=== PATIENT | female | born 1990 | race Caucasian/White ===

== ENCOUNTER → 2016-08-16 | Outpatient (REF) | payer MEDICARE ==
[~2016-08-16] MED LIST: ENPRESSE; LAMI25TA; PROPRANOLOL LA; ZIPR80CAP
[2016-08-16 21:20] LABS: MEAN CORPUSCULAR HEMOGLOBIN 26.6 pg (27.0-33.0); MEAN CORPUSCULAR HGB CONC 32.5 g/dl (32.0-36.5); MEAN CORPUSCULAR VOLUME 81.7 fl (80.0-96.0); RED CELL DISTRIBUTION WIDTH 14.7 % (11.5-14.5); WHITE BLOOD COUNT 17.1 K/mm3 (4.0-10.0)
[2016-08-16 21:41] LABS: ALBUMIN 3.7 GM/DL (3.2-5.2); ALBUMIN/GLOBULIN RATIO 0.95 (1.00-1.93); ALKALINE PHOSPHATASE 107 U/L (45-117); ALT/SGPT 31 U/L (12-78); ANION GAP 7 MEQ/L (8-16); AST/SGOT 22 U/L (15-37); BILIRUBIN,TOTAL 0.1 MG/DL (0.2-1.0); BLOOD UREA NITROGEN 14 MG/DL (7-18); CARBON DIOXIDE LEVEL 28 MEQ/L (21-32); CHLORIDE LEVEL 108 MEQ/L (98-107); CREATININE FOR GFR 0.66 MG/DL (0.55-1.02); GLOMERULAR FILTRATION RATE > 60.0 (>60); GLUCOSE, FASTING 74 MG/DL (70-105); HCG, SERUM QUANTITATIVE < 1.0 MIU/ML; POTASSIUM SERUM 4.3 MEQ/L (3.5-5.1); SODIUM LEVEL 143 MEQ/L (136-145); TOTAL PROTEIN 7.6 GM/DL (6.4-8.2)
== END ==
LOC: M SFHCLERA 16:50
PROVIDERS: ATTEND Physician Assistant
DX: R42 Dizziness and giddiness (principal); D50.9 Iron deficiency anemia, unspecified; M25.572 Pain in left ankle and joints of left foot; Z79.899 Other long term (current) drug therapy
CPT/HCPCS: 80053; 83036; 83540; 84443; 84702; 85027; G0463

== ENCOUNTER → 2016-08-30 | Outpatient (REF) | payer MEDICARE ==
[2016-08-30 21:03] LABS: BASO # 0.1 K/mm3 (0.0-0.2); BASO % 0.4 % (0.0-1.0); EOS # 0.3 K/mm3 (0.0-0.50); EOS % 1.9 % (0.0-3.0); LARGE UNSTAINED CELL # 0.2 K/mm3 (0.0-0.4); LARGE UNSTAINED CELL % 0.9 % (0.0-4.0); LYMPH # 3.1 K/mm3 (1.5-6.5); LYMPH % 18.3 % (24.0-44.0); MEAN CORPUSCULAR HEMOGLOBIN 25.3 pg (27.0-33.0); MEAN CORPUSCULAR HGB CONC 30.3 g/dl (32.0-36.5); MEAN CORPUSCULAR VOLUME 83.6 fl (80.0-96.0); MONO # 0.6 K/mm3 (0.0-0.8); MONO % 3.5 % (0.0-5.0); NEUTROPHILS # 12.8 K/mm3 (1.8-7.7); PLATELET COUNT, AUTOMATED 407 k/mm3 (150-450); RED CELL DISTRIBUTION WIDTH 14.8 % (11.5-14.5)
== END ==
LOC: M SFHCLERA 16:55
PROVIDERS: ATTEND Physician Assistant
DX: D72.829 Elevated white blood cell count, unspecified (principal)
CPT/HCPCS: 85025; G0463

== ENCOUNTER → 2017-07-25 | Outpatient (CLI) | payer MEDICARE | LOC: M LRY 15:33 | DX: R05 Cough (principal) | CPT/HCPCS: G0463 ==

== ENCOUNTER → 2017-10-10 | Outpatient (REF) | payer MEDICARE ==
[2017-10-10 20:11] LABS: HEMATOCRIT 37.6 % (36.0-47.0); HEMOGLOBIN 11.8 g/dl (12.0-15.5); MEAN CORPUSCULAR HEMOGLOBIN 24.5 pg (27.0-33.0); MEAN CORPUSCULAR HGB CONC 31.4 g/dl (32.0-36.5); MEAN CORPUSCULAR VOLUME 78.2 fl (80.0-96.0); PLATELET COUNT, AUTOMATED 417 10^3/uL (150-450); RED BLOOD COUNT 4.81 10^6/uL (4.00-5.40); RED CELL DISTRIBUTION WIDTH 15.3 % (11.5-14.5); WHITE BLOOD COUNT 15.5 10^3/uL (4.0-10.0)
[2017-10-10 20:20] LABS: C REACTIVE PROTEIN QUANTITATIV 2.65 MG/DL (0.00-0.30)
[2017-10-10 20:20] LABS: RHEUMATOID FACTOR QUANT < 10.0 IU/ML (<15.0)
[2017-10-10 20:34] LABS: ERYTHROCYTE SEDIMENTATION RATE 41 mm/hr (0-20)
[2017-10-13 00:08] LABS: ANTINUCLEAR ANTIBODIES DIRECT Negative (Negative); Lyme Disease IgG/IgM Antibodie <0.91 ISR (0.00-0.90); Lyme Disease IgM Ab Quantitati <0.80 index (0.00-0.79)
== END ==
LOC: M SFHCLERA 16:26
DX: M25.541 Pain in joints of right hand (principal)
CPT/HCPCS: 86140

== ENCOUNTER 2018-01-08 11:04 | Emergency (ER) | payer MEDICARE ==
[2018-01-08 12:34] LABS: BASO # 0.1 10^3/uL (0.0-0.2); BASO % 0.3 % (0.0-1.0); EOS # 0.4 10^3/uL (0.0-0.50); HEMOGLOBIN 11.6 g/dl (12.0-15.5); IMMATURE GRANULOCYTE % 0.3 % (0-3.0); LYMPH # 3.2 10^3/uL (1.5-6.5); MEAN CORPUSCULAR HEMOGLOBIN 24.3 pg (27.0-33.0); MEAN CORPUSCULAR HGB CONC 30.5 g/dl (32.0-36.5); MEAN CORPUSCULAR VOLUME 79.5 fl (80.0-96.0); MONO # 0.7 10^3/uL (0.0-0.8); MONO % 4.9 % (0.0-5.0); NEUTROPHILS % 69.5 % (36.0-66.0); PLATELET COUNT, AUTOMATED 497 10^3/uL (150-450); RED BLOOD COUNT 4.78 10^6/uL (4.00-5.40); WHITE BLOOD COUNT 14.4 10^3/uL (4.0-10.0)
[2018-01-08] MEDS: ONDANSETRON 4MG/2ML VIAL (J2405) IV (12:40)
[2018-01-08] MEDS: NS 1,000 ML IV (12:40)
[2018-01-08] MEDS: KETOROLAC 30 MG/ML VIAL (J1885) IV (12:40)
[2018-01-08 13:03] LABS: ANION GAP 5 MEQ/L (8-16); BLOOD UREA NITROGEN 11 MG/DL (7-18); CALCIUM LEVEL 8.9 MG/DL (8.5-10.1); CARBON DIOXIDE LEVEL 29 MEQ/L (21-32); CHLORIDE LEVEL 105 MEQ/L (98-107); CREATININE FOR GFR 0.67 MG/DL (0.55-1.30); GLOMERULAR FILTRATION RATE > 60.0 (>60); GLUCOSE, FASTING 82 MG/DL (70-100); POTASSIUM SERUM 4.7 MEQ/L (3.5-5.1); SODIUM LEVEL 139 MEQ/L (136-145)
[2018-01-08 13:05] LABS: KETONE, URINE AUTO RFX NEGATIVE (NEGATIVE); LEUKOCYTE ESTERASE UR AUTO RFX NEGATIVE (NEGATIVE); MUCUS, URINE RFX SMALL (NEGATIVE); NITRITE, URINE AUTO RFX NEGATIVE (NEGATIVE); RBC, URINE AUTO RFX TNTC /HPF (0-3); SQUAM EPITHELIAL CELL UR AURFX 1 /HPF (0-6); WBC, URINE AUTO RFX 1 /HPF (0-3)
[2018-01-08] MEDS ORDERED: ISOVUE-370 76% 100ML VIAL (Q9967) As Ordered (14:10)
== END 2018-01-08 15:26 | disposition home or self-care (01) ==
LOC: M ED 11:04
DX: N92.0 Excessive and frequent menstruation with regular cycle (principal); G40.909 Epilepsy, unspecified, not intractable, without status epilepticus; F17.210 Nicotine dependence, cigarettes, uncomplicated; Z88.0 Allergy status to penicillin; Z79.3 Long term (current) use of hormonal contraceptives; Z79.899 Other long term (current) drug therapy
CPT/HCPCS: J2405

== ENCOUNTER 2018-02-25 11:01 | Emergency (ER) | payer MEDICARE ==
[2018-02-25 12:08] LABS: BASO # 0.1 10^3/uL (0.0-0.2); BASO % 0.5 % (0.0-1.0); EOS # 0.4 10^3/uL (0.0-0.50); EOS % 3.9 % (0.0-3.0); HEMATOCRIT 37.7 % (36.0-47.0); HEMOGLOBIN 11.5 g/dl (12.0-15.5); IMMATURE GRANULOCYTE % 0.4 % (0-3.0); LYMPH # 2.7 10^3/uL (1.5-6.5); LYMPH % 25.5 % (24.0-44.0); MEAN CORPUSCULAR HEMOGLOBIN 23.7 pg (27.0-33.0); MEAN CORPUSCULAR HGB CONC 30.5 g/dl (32.0-36.5); MEAN CORPUSCULAR VOLUME 77.7 fl (80.0-96.0); MONO # 0.7 10^3/uL (0.0-0.8); MONO % 6.3 % (0.0-5.0); NEUTROPHILS # 6.7 10^3/uL (1.8-7.7); NEUTROPHILS % 63.4 % (36.0-66.0); PLATELET COUNT, AUTOMATED 509 10^3/uL (150-450); RED BLOOD COUNT 4.85 10^6/uL (4.00-5.40); RED CELL DISTRIBUTION WIDTH 15.3 % (11.5-14.5); WHITE BLOOD COUNT 10.6 10^3/uL (4.0-10.0)
[2018-02-25 12:13] LABS: KETONE, URINE AUTO RFX NEGATIVE (NEGATIVE); LEUKOCYTE ESTERASE UR AUTO RFX NEGATIVE (NEGATIVE); MUCUS, URINE RFX SMALL (NEGATIVE); NITRITE, URINE AUTO RFX NEGATIVE (NEGATIVE); RBC, URINE AUTO RFX 1 /HPF (0-3); SPECIFIC GRAVITY UR AUTO RFX 1.024 (1.002-1.035); SQUAM EPITHELIAL CELL UR AURFX 0 /HPF (0-6); WBC, URINE AUTO RFX 2 /HPF (0-3)
[2018-02-25 12:48] LABS: ALBUMIN 3.3 GM/DL (3.2-5.2); ALBUMIN/GLOBULIN RATIO 0.75 (1.00-1.93); ALKALINE PHOSPHATASE 86 U/L (45-117); ALT/SGPT 31 U/L (12-78); ANION GAP 7 MEQ/L (8-16); AST/SGOT 25 U/L (7-37); BILIRUBIN,DIRECT < 0.1 MG/DL (0.0-0.2); BILIRUBIN,TOTAL 0.2 MG/DL (0.2-1.0); BLOOD UREA NITROGEN 11 MG/DL (7-18); CALCIUM LEVEL 9.2 MG/DL (8.5-10.1); CARBON DIOXIDE LEVEL 29 MEQ/L (21-32); CHLORIDE LEVEL 105 MEQ/L (98-107); CREATININE FOR GFR 0.65 MG/DL (0.55-1.30); GLOMERULAR FILTRATION RATE > 60.0 (>60); GLUCOSE, FASTING 102 MG/DL (70-100); LIPASE 69 U/L (73-393); POTASSIUM SERUM 4.9 MEQ/L (3.5-5.1); SODIUM LEVEL 141 MEQ/L (136-145); TOTAL PROTEIN 7.7 GM/DL (6.4-8.2)
[2018-02-25] MEDS: PANTOPRAZOLE 40MG INJ (PROTONIX) (C9113) IV (13:46)
[2018-02-25] MEDS: NS 1,000 ML IV (13:46)
== END 2018-02-25 14:23 | disposition home or self-care (01) ==
LOC: M ED 11:01
DX: K29.00 Acute gastritis without bleeding (principal); J40 Bronchitis, not specified as acute or chronic; G43.909 Migraine, unspecified, not intractable, without status migrainosus; Z88.0 Allergy status to penicillin
CPT/HCPCS: C9113

== ENCOUNTER → 2018-04-10 | Outpatient (CLI) | payer MEDICARE ==
[~2018-04-10] MED LIST changes: +AZIT-12 PO; +BENZ200C70 PO; +HYDR50TA70 PO; +KETO10TAB PO; +NAPR-885 PO; +PROT1TAB2 PO; +SPRI28TA PO; +VENTAER INH
--- NOTE | 2018-04-10 10:14 | REP ---
GALLBLADDER ULTRASOUND: HISTORY: Epigastric pain. Multiple stones are present in the gallbladder. The gallbladder wall measures 3.3 mm. The common bile duct measures 3.3 mm. There is fatty infiltration of the liver. The pancreas is not seen. The right kidney measures 6.6 cm in transverse by 4.8 cm in AP by 11 cm in cephalocaudal dimensions. There is no hydronephrosis or mass. IMPRESSION: Cholelithiasis. Electronically Signed by Manuel Qureshi MD 04/10/2018 10:18 A
== END ==
LOC: M LRY 07:48
PROVIDERS: ATTEND Nurse Practitioner Family
DX: K80.20 Calculus of gallbladder without cholecystitis without obstruction (principal); R10.10 Upper abdominal pain, unspecified

== ENCOUNTER 2018-04-12 10:34 | Observation (INO) | payer MEDICARE, SELFPAY ==
[~2018-04-12] VITALS: Ht 162.6 cm; Wt 114.5 kg
[2018-04-12] MEDS ORDERED: NAPR-885 PO (10:46)
[2018-04-12] MEDS ORDERED: NS 1,000 ML IV ONE ×3 (11:15→18:15)
[2018-04-12] MEDS ORDERED: ONDANSETRON 4MG/2ML VIAL (J2405) IV ONE (11:15)
[2018-04-12 11:20] LABS: BASO # 0.1 10^3/uL (0.0-0.2); BASO % 0.4 % (0.0-1.0); EOS # 0.2 10^3/uL (0.0-0.50); EOS % 1.6 % (0.0-3.0); HEMATOCRIT 36.2 % (36.0-47.0); HEMOGLOBIN 11.2 g/dl (12.0-15.5); LYMPH # 2.7 10^3/uL (1.5-6.5); LYMPH % 19.5 % (24.0-44.0); MEAN CORPUSCULAR HEMOGLOBIN 23.2 pg (27.0-33.0); MEAN CORPUSCULAR HGB CONC 30.9 g/dl (32.0-36.5); MEAN CORPUSCULAR VOLUME 74.9 fl (80.0-96.0); MONO # 0.6 10^3/uL (0.0-0.8); MONO % 4.1 % (0.0-5.0); NEUTROPHILS # 10.1 10^3/uL (1.8-7.7); NEUTROPHILS % 74.1 % (36.0-66.0); PLATELET COUNT, AUTOMATED 460 10^3/uL (150-450); RED BLOOD COUNT 4.83 10^6/uL (4.00-5.40); WHITE BLOOD COUNT 13.6 10^3/uL (4.0-10.0)
[2018-04-12] MEDS ORDERED: MORPHINE 4 MG/ML 1ML VIAL/SYRINGE (J2270) IV ONE ×2 (11:30→12:45)
[2018-04-12 11:47] LABS: ALBUMIN 3.5 GM/DL (3.2-5.2); ALT/SGPT 28 U/L (12-78); AMYLASE 28 U/L (25-115); BILIRUBIN,DIRECT 0.1 MG/DL (0.0-0.2); BILIRUBIN,TOTAL 0.3 MG/DL (0.2-1.0); BLOOD UREA NITROGEN 9 MG/DL (7-18); CALCIUM LEVEL 9.3 MG/DL (8.5-10.1); CARBON DIOXIDE LEVEL 27 MEQ/L (21-32); CHLORIDE LEVEL 105 MEQ/L (98-107); CREATININE FOR GFR 0.82 MG/DL (0.55-1.30); GLOMERULAR FILTRATION RATE > 60.0 (>60); GLUCOSE, FASTING 88 MG/DL (70-100); LIPASE 54 U/L (73-393); POTASSIUM SERUM 4.3 MEQ/L (3.5-5.1); SODIUM LEVEL 141 MEQ/L (136-145); TOTAL PROTEIN 7.8 GM/DL (6.4-8.2)
--- NOTE | 2018-04-12 12:18 | REP ---
Clinical: Right upper quadrant pain. Technique: Real time cuevas scale ultrasound examination using curved array transducer. Findings: Gallbladder demonstrates small amount of layering gravel without wall thickening or pericholecystic fluid. No biliary ductal dilatation is appreciated and the common bile duct measures 5.5 mm diameter. Liver and pancreas are normal in contour, size, echogenicity without focal hepatic or pancreatic lesions identified. The right kidney is normal in reniform shape without hydronephrosis and measures 11.1 x 5.9 x 4.7 cm. Impression: Cholelithiasis. Electronically Signed by Alejandro Gallardo MD 04/12/2018 12:10 P
[2018-04-12] MEDS ORDERED: KETOROLAC 30 MG/ML VIAL (J1885) IV ONE (16:45)
[2018-04-12] MEDS ORDERED: HYDROmorphone 2 MG TAB PO ONE (21:15)
[2018-04-12 21:28] LABS: URINE PREG TEST NEGATIVE (NEGATIVE)
[2018-04-12] MEDS ORDERED: ONDANSETRON 4MG/2ML VIAL (J2405) IV PRN ×2 (21:30→22:45)
[2018-04-12] MEDS ORDERED: MORPHINE 2 MG/ML 1ML SYRINGE (J2270) IV ONE (21:30)
[2018-04-12] MEDS ORDERED: NS 1,000 ML IV SCH (21:30)
[2018-04-12 22:24] LABS: HCG, SERUM QUANTITATIVE < 1.0 MIU/ML
[2018-04-12] MEDS ORDERED: ACETAMINOPHEN TAB 650MG DOSE (2X325MG) PO PRN (22:45)
[2018-04-12] MEDS ORDERED: NORCO, ANEXSIA 5/325MG TABLET (HYDROcodone/ACETAMINOPHEN) PO PRN (22:45)
[2018-04-12] MEDS ORDERED: KETOROLAC 30 MG/ML VIAL (J1885) IV PRN (22:45)
[2018-04-12] MEDS ORDERED: METOCLOPRAMIDE INJ 10MG/2ML VIAL (J2765) IV PRN (22:45)
[2018-04-12] MEDS ORDERED: MORPHINE 4 MG/ML 1ML VIAL/SYRINGE (J2270) IV PRN ×2 (22:45)
[2018-04-12] MEDS: LR 1,000 ML IV SCH (23:55)
[2018-04-13] VITALS (7 sets, daily range): BP systolic 110–138; BP diastolic 72–92
[2018-04-13] MEDS: LR 1,000 ML IV SCH ×2 (06:09→17:30)
[2018-04-13 07:24] LABS: ALBUMIN 2.9 GM/DL (3.2-5.2); ALT/SGPT 23 U/L (12-78); BILIRUBIN,TOTAL 0.3 MG/DL (0.2-1.0); BLOOD UREA NITROGEN 6 MG/DL (7-18); CALCIUM LEVEL 8.5 MG/DL (8.5-10.1); CARBON DIOXIDE LEVEL 28 MEQ/L (21-32); CHLORIDE LEVEL 110 MEQ/L (98-107); CREATININE FOR GFR 0.67 MG/DL (0.55-1.30); GLOMERULAR FILTRATION RATE > 60.0 (>60); GLUCOSE, FASTING 83 MG/DL (70-100); POTASSIUM SERUM 4.2 MEQ/L (3.5-5.1); SODIUM LEVEL 144 MEQ/L (136-145)
[2018-04-13 08:18] LABS: BASO # 0.1 10^3/uL (0.0-0.2); BASO % 0.5 % (0.0-1.0); EOS # 0.3 10^3/uL (0.0-0.50); EOS % 3.4 % (0.0-3.0); HEMATOCRIT 31.4 % (36.0-47.0); HEMOGLOBIN 9.7 g/dl (12.0-15.5); LYMPH # 2.3 10^3/uL (1.5-6.5); LYMPH % 23.2 % (24.0-44.0); MEAN CORPUSCULAR HEMOGLOBIN 23.2 pg (27.0-33.0); MEAN CORPUSCULAR HGB CONC 30.9 g/dl (32.0-36.5); MEAN CORPUSCULAR VOLUME 75.1 fl (80.0-96.0); MONO # 0.5 10^3/uL (0.0-0.8); MONO % 5.2 % (0.0-5.0); NEUTROPHILS # 6.8 10^3/uL (1.8-7.7); NEUTROPHILS % 67.5 % (36.0-66.0); RED BLOOD COUNT 4.18 10^6/uL (4.00-5.40)
[2018-04-13 08:34] LABS: PLATELET COUNT, AUTOMATED 355 10^3/uL (150-450)
[2018-04-13] MEDS ORDERED: PANTOPRAZOLE 40MG INJ (PROTONIX) (C9113) IV SCH (09:00)
--- NOTE | 2018-04-14 12:47 | HPE ---
DATE OF ADMISSION: 04/12/2018 ADMISSION DIAGNOSIS: Abdominal pain and cholelithiasis. HISTORY OF PRESENT ILLNESS: The patient is a 27-year-old woman who presented to the emergency department complaining of abdominal pain. She had presented at about 10:30 in the morning on April 12. She reported that she had been having some abdominal pain on and off for as long as several months for or more. She had recently seen her primary care provider who ordered a gallbladder ultrasound which apparently showed gallstones. The patient has an appointment to see one of my colleagues on April 28 but was having symptoms that she felt could not wait and she presented to the ER for evaluation. This was primarily pain in the right upper quadrant. She has noted some nausea and vomiting. She reports having pain occur and worsen after any oral intake now and this occurs very shortly after ingestion or even during a meal. Pain lasts for a short time and then may resolve. She has had pains that awakened her at night. She has nausea quite a bit. In the emergency department she had some laboratory studies done that were not particularly abnormal. A repeat ultrasound was done which confirmed cholelithiasis that showed no evidence of ductal dilatation or gallbladder wall thickening. I was consulted and the patient is now admitted for observation status for her abdominal pain. ALLERGIES: Allergies are reported to penicillin and penicillin cross reactors. MEDICATIONS PRIOR TO ADMISSION: Include hydroxyzine 50 mg by mouth three times a day as needed for anxiety and naproxen 500 mg by mouth twice daily as needed for pain. SURGICAL HISTORY: Significant only for some dental surgery. MEDICAL HISTORY: Significant for a history of seizures as a child but nothing since about age 9. She has been troubled by her abdominal pain for some time and initially it was briefer and more infrequent episodes. She does have a history of some anxiety. SOCIAL HISTORY: The patient is a former smoker who quit about 2 months ago. She is accompanied by a significant other apparently her . The patient denies any current tobacco use. She denies any significant alcohol intake. FAMILY HISTORY: Noncontributory. REVIEW OF SYSTEMS: Shows no history of cardiac problems, chest pain or palpitations. She has had no cough, wheezing or sputum production. She has had no hematemesis or hematochezia. She denies any history of jaundice, hepatitis or pancreatitis or peptic ulcer disease. She has had no history of DVT or pulmonary embolus. Remainder of the review of systems is unremarkable. PHYSICAL EXAMINATION: Physical exam reveals a quite obese young woman lying quietly on the hospital stretcher. She is alert and oriented. She is lying quietly but moves readily when necessary without obvious discomfort. Respiratory rate appears normal. Skin: Is warm and dry. Sclerae are anicteric. The neck is supple without mass or bruit. Heart: Exam shows a regular rate and rhythm. Lungs are clear. The abdomen is without any obvious hernia. She has some bowel sounds present. The abdomen is obese. The abdomen is soft and without palpable mass. In the right subcostal area laterally at about the AC joint. She has an area where when pressed she winces and freight engineer or teeth and appears quite uncomfortable. This is not entirely reproducible from one exam to another. Extremities: Show palpable radial and pedal pulses bilaterally. Her laboratory studies showed a white count of 14 with a hemoglobin of 11, hematocrit 36 and platelet count of 460,000. Differential count was 74% neutrophils and 20% lymphocytes. Chemistry profile showed a normal CPA with the exception of a slightly low lipase level. Ultrasound images, I reviewed and I would agree that this shows some layering small stones. IMPRESSION: 1. Abdominal pain. 2. Cholelithiasis. 3. Anxiety. PLAN: The patient will be placed on observation status. She certainly has a complaint of some upper abdominal pain with nausea. Her pain has been somewhat intermittent. Initially her symptoms sounded more typical of biliary colic and they do now in that she complains of onset of discomfort immediately with eating frequently now. She does have gallstones but there is no evidence of acute cholecystitis on the CT or on the ultrasound right now. We will keep the patient nothing by mouth. I will not start her on antibiotics at this point. She could have antinausea medicine or analgesics as necessary. We will see what happens to her symptoms while fasting here overnight and then decide what to do with her diet in the morning. I do not see an urgent need for cholecystectomy presently. I will see if we can get a nuclear biliary scan to confirm a patent cystic duct. The patient was counseled regarding the plan for care and desires to proceed as I have outlined it. [facility]OSPITALDim[facility]
== END 2018-04-14 02:20 | disposition home or self-care (01) ==
LOC: M ED 10:34 → M ED INP 22:38 → M PED 04-13 00:12
PROVIDERS: ADMIT Surgery; ATTEND Surgery
DX: K80.20 Calculus of gallbladder without cholecystitis without obstruction (principal); E66.9 Obesity, unspecified; Z87.891 Personal history of nicotine dependence; F41.9 Anxiety disorder, unspecified
CPT/HCPCS: 36415; 76705; 80048; 80053; 80076; 81001; 82150; 83690; 84702; 84703; 85025; 96361; 96374; 96375; 96376; 99284; C9113; J1885; J2270; J2405

== ENCOUNTER 2018-06-02 17:21 | Emergency (ER) | payer MEDICARE, SELFPAY ==
[~2018-06-02] VITALS: Ht 162.6 cm; Wt 113.6 kg
[2018-06-02] MEDS ORDERED: NAPR-50 PO (19:28)
[2018-06-02] MEDS ORDERED: SOMA350T PO (19:28)
[2018-06-02] MEDS ORDERED: diazePAM 10 MG TAB PO ONE (19:30)
[2018-06-02 19:34] VITALS: BP 109/65
== END 2018-06-02 19:48 | disposition home or self-care (01) ==
LOC: M ED 17:21
DX: M54.9 Dorsalgia, unspecified (principal); G89.29 Other chronic pain; F41.9 Anxiety disorder, unspecified; Z88.0 Allergy status to penicillin

== ENCOUNTER → 2018-06-06 | Outpatient (REF) | payer MEDICARE, SELFPAY ==
[~2018-06-06] MED LIST changes: +NAPR-837 PO; +SOMA350T PO
[2018-06-06 12:20] LABS: BASO # 0.1 10^3/uL (0.0-0.2); BASO % 0.5 % (0.0-1.0); EOS # 0.3 10^3/uL (0.0-0.50); EOS % 2.5 % (0.0-3.0); HEMATOCRIT 38.1 % (36.0-47.0); HEMOGLOBIN 11.6 g/dl (12.0-15.5); LYMPH # 2.9 10^3/uL (1.5-6.5); LYMPH % 22.5 % (24.0-44.0); MEAN CORPUSCULAR HEMOGLOBIN 23.3 pg (27.0-33.0); MEAN CORPUSCULAR HGB CONC 30.4 g/dl (32.0-36.5); MEAN CORPUSCULAR VOLUME 76.7 fl (80.0-96.0); MONO # 0.6 10^3/uL (0.0-0.8); NEUTROPHILS # 8.9 10^3/uL (1.8-7.7); PLATELET COUNT, AUTOMATED 491 10^3/uL (150-450); RED BLOOD COUNT 4.97 10^6/uL (4.00-5.40); WHITE BLOOD COUNT 12.8 10^3/uL (4.0-10.0)
[2018-06-06 12:45] LABS: ERYTHROCYTE SEDIMENTATION RATE 58 mm/hr (0-20)
[2018-06-06 13:21] LABS: ALBUMIN 3.8 GM/DL (3.2-5.2); ALT/SGPT 424 U/L (12-78); BILIRUBIN,TOTAL 0.5 MG/DL (0.2-1.0); BLOOD UREA NITROGEN 11 MG/DL (7-18); C REACTIVE PROTEIN QUANTITATIV 2.54 MG/DL (0.00-0.30); CARBON DIOXIDE LEVEL 26 MEQ/L (21-32); CHLORIDE LEVEL 105 MEQ/L (98-107); CHOLESTEROL LEVEL 207 MG/DL (<200); CHOLESTEROL RISK RATIO 4.704 (<5); CREATININE FOR GFR 0.62 MG/DL (0.55-1.30); FREE T4 1.02 NG/DL (0.76-1.46); GLOMERULAR FILTRATION RATE > 60.0 (>60); GLUCOSE, FASTING 79 MG/DL (70-100); HDL CHOLESTEROL 44 MG/DL (>40); LDL CHOLESTEROL 141 MG/DL (<100); NON-HDL-C 163 MG/DL; POTASSIUM SERUM 4.5 MEQ/L (3.5-5.1); SODIUM LEVEL 141 MEQ/L (136-145); TRIGLYCERIDES LEVEL 111 MG/DL (<150)
[2018-06-06 13:27] LABS: TOTAL 25(OH) VITAMIN D 17.5 NG/ML (30.0-100.0)
[2018-06-06 14:48] LABS: HCG, SERUM QUALITATIVE NEGATIVE (NEGATIVE)
== END ==
LOC: M SFHCPLAZ 10:33
PROVIDERS: ATTEND Nurse Practitioner Family
DX: F41.1 Generalized anxiety disorder (principal); F32.9 Major depressive disorder, single episode, unspecified; M54.9 Dorsalgia, unspecified; R73.01 Impaired fasting glucose; Z13.228 Encounter for screening for other metabolic disorders; E55.9 Vitamin D deficiency, unspecified

== ENCOUNTER → 2018-06-11 | Outpatient (REF) ==
[~2018-06-11] MED LIST changes: +NAPR-50 PO; -NAPR-837 PO
--- NOTE | 2018-06-11 12:17 | REP ---
RIGHT ANKLE, FOUR VIEWS: HISTORY: Degenerative joint disease. There is no acute fracture or dislocation. The joint space is normal in appearance. IMPRESSION: There is no acute fracture or dislocation. Electronically Signed by Manuel Qureshi MD 06/11/2018 12:17 P
--- NOTE | 2018-06-11 12:17 | REP ---
PARTIAL LUMBAR SPINE, THREE VIEWS: HISTORY: Degenerative disc disease. COMPARISON: 06/22/2011. There is no acute fracture or subluxation. The L4-5 intervertebral disc is decreased in height consistent with disc degeneration. IMPRESSION: Degenerative change as described above. Electronically Signed by Manuel Qureshi MD 06/11/2018 12:18 P
== END ==
LOC: M SMT 08:57
PROVIDERS: ATTEND Internal Medicine
DX: Z02.89 Encounter for other administrative examinations (principal)

== ENCOUNTER → 2018-06-17 | Outpatient (REF) | payer MEDICARE | LOC: M SFHCPLAZ 08:32 | PROVIDERS: ATTEND Nurse Practitioner Family | DX: R74.8 Abnormal levels of other serum enzymes (principal); R73.01 Impaired fasting glucose; Z53.8 Procedure and treatment not carried out for other reasons ==

== ENCOUNTER → 2018-08-15 | Outpatient (REF) | payer MEDICARE ==
[~2018-08-15] MED LIST changes: -NAPR-50 PO; +NAPR-837 PO
[2018-08-15 14:27] LABS: ALBUMIN 3.7 GM/DL (3.2-5.2); ALT/SGPT 152 U/L (12-78); BILIRUBIN,DIRECT < 0.1 MG/DL (0.0-0.2); BILIRUBIN,TOTAL 0.3 MG/DL (0.2-1.0); TOTAL PROTEIN 7.9 GM/DL (6.4-8.2)
[2018-08-15 14:45] LABS: HEPATITIS B SURFACE ANTIGEN NEGATIVE (NEGATIVE)
[2018-08-15 15:13] LABS: HEPATITIS B CORE ANTIBODY IGM NEGATIVE (NEGATIVE); HEPATITIS C VIRUS ABY INDEX 0.1 INDEX (<0.8)
[2018-08-18 11:08] LABS: HEPATITIS A ANTIBODY IGM NEGATIVE (NEGATIVE)
== END ==
LOC: M SFHCPLAZ 10:57
PROVIDERS: ATTEND Nurse Practitioner Family
DX: R74.8 Abnormal levels of other serum enzymes (principal); R73.01 Impaired fasting glucose

== ENCOUNTER → 2018-10-30 | Outpatient (REF) | payer MEDICARE | LOC: M LAB REF 11:18 | PROVIDERS: ATTEND Physician Assistant | DX: J02.9 Acute pharyngitis, unspecified (principal) ==

== ENCOUNTER 2018-11-11 01:15 | Emergency (ER) | payer MEDICAID, MEDICARE, SELFPAY ==
[~2018-11-11] VITALS: Ht 162.6 cm; Wt 104.6 kg
[2018-11-11 01:54] LABS: BASO # 0.1 10^3/uL (0.0-0.2); BASO % 0.3 % (0.0-1.0); EOS # 0.4 10^3/uL (0.0-0.50); EOS % 2.1 % (0.0-3.0); HEMATOCRIT 37.4 % (36.0-47.0); HEMOGLOBIN 11.5 g/dl (12.0-15.5); LYMPH # 3.1 10^3/uL (1.5-6.5); LYMPH % 17.3 % (24.0-44.0); MEAN CORPUSCULAR HEMOGLOBIN 25.1 pg (27.0-33.0); MEAN CORPUSCULAR HGB CONC 30.7 g/dl (32.0-36.5); MEAN CORPUSCULAR VOLUME 81.7 fl (80.0-96.0); MONO % 5.7 % (0.0-5.0); NEUTROPHILS # 13.3 10^3/uL (1.8-7.7); NEUTROPHILS % 74.3 % (36.0-66.0); PLATELET COUNT, AUTOMATED 384 10^3/uL (150-450); RED BLOOD COUNT 4.58 10^6/uL (4.00-5.40); WHITE BLOOD COUNT 17.9 10^3/uL (4.0-10.0)
[2018-11-11 02:22] LABS: BLOOD UREA NITROGEN 15 MG/DL (7-18); CALCIUM LEVEL 9.3 MG/DL (8.5-10.1); CARBON DIOXIDE LEVEL 32 MEQ/L (21-32); CHLORIDE LEVEL 105 MEQ/L (98-107); CK-MB VALUE MASS 1.3 NG/ML (<3.6); CPK CREATINE PHOSPHOKINASE 88 U/L (26-192); CREATININE FOR GFR 0.62 MG/DL (0.55-1.30); GLOMERULAR FILTRATION RATE > 60.0 (>60); GLUCOSE, FASTING 112 MG/DL (70-100); MB/CK RELATIVE INDEX 1.48 (< OR =4); POTASSIUM SERUM 4.4 MEQ/L (3.5-5.1); SODIUM LEVEL 140 MEQ/L (136-145); TROPONIN I < 0.02 NG/ML (< 0.10)
--- NOTE | 2018-11-11 02:38 | REP ---
Clinical: Acute chest pain . Comparison: 07/25/2017 . Findings: The mediastinum and cardiac silhouette are stable and within normal limits for portable technique. The lung knott are clear without acute consolidation, effusion, or pneumothorax. Skeletal structures are intact. Impression: No acute cardiopulmonary process appreciated. Electronically Signed by Alejandro Gallardo MD 11/11/2018 02:29 A
[2018-11-11 02:45] LABS: HCG, SERUM QUALITATIVE NEGATIVE (NEGATIVE)
[2018-11-11 02:46] LABS: ALBUMIN 3.4 GM/DL (3.2-5.2); ALT/SGPT 23 U/L (12-78); BILIRUBIN,DIRECT < 0.1 MG/DL (0.0-0.2); BILIRUBIN,TOTAL 0.2 MG/DL (0.2-1.0); LIPASE 71 U/L (73-393); TOTAL PROTEIN 7.3 GM/DL (6.4-8.2)
[2018-11-11] MEDS ORDERED: PANTOPRAZOLE 40MG INJ (PROTONIX) (C9113) IV ONE (05:00)
[2018-11-11] MEDS ORDERED: GI COCKTAIL 50ML BTL(HYOSCYAMINE/MAALOX/LIDOCAINE VISCOUS)(1:3:1) PO ONE (05:00)
[2018-11-11] MEDS ORDERED: ISOVUE-370 76% 100ML VIAL (Q9967) As Ordered ONE (05:13)
[2018-11-11] MEDS ORDERED: NS 1,000 ML IV ONE (05:15)
--- NOTE | 2018-11-11 05:45 | ECGEPIP ---
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
--- NOTE | 2018-11-11 07:41 | REPVR ---
EXAM: CT Angiography Chest With Contrast EXAM DATE/TIME: 11/11/2018 4:58 AM CLINICAL HISTORY: 28 years old, female; Chest pain; Type not specified; Additional info: Pleuritic chest pain, SOB TECHNIQUE: Imaging protocol: Axial computed tomographic angiography images of the chest with intravenous contrast using CT angiography protocol. Coronal and sagittal reformatted images were created and reviewed. 3D rendering: MIP reconstructed images were created and reviewed. Radiation optimization: All CT scans at this facility use at least one of these dose optimization techniques: automated exposure control; mA and/or kV adjustment per patient size (includes targeted exams where dose is matched to clinical indication); or iterative reconstruction. Contrast material: ISO; Contrast volume: 100 ml; Contrast route: AC; COMPARISON: CR PORTABLE CHEST X-RAY 11/11/2018 1:30 AM FINDINGS: Pulmonary arteries: No pulmonary embolus is identified. Aorta: The thoracic aorta is nonaneurysmal. Lungs: Mild dependent atelectasis is present bilaterally. The lungs are otherwise clear. The central airways appear patent. Pleural space: Unremarkable. No pneumothorax. No pleural effusion. Heart: Unremarkable. No cardiomegaly. No pericardial effusion. Lymph nodes: Unremarkable. No enlarged lymph nodes. Bones/joints: Mild degenerative changes involve the spine. Soft tissues: Unremarkable. Other findings: Dedicated abdominal CT has been performed, and findings below the diaphragm will be reported separately. IMPRESSION: No pulmonary embolus or other acute thoracic disease identified. Electronically signed by: Lawrence Roberts On 11/11/2018 07:41:17 AM
[2018-11-11] MEDS ORDERED: VENTAER INH (07:46)
--- NOTE | 2018-11-11 07:48 | REPVR ---
EXAM: CT Abdomen and Pelvis With Contrast EXAM DATE/TIME: 11/11/2018 4:58 AM CLINICAL HISTORY: 28 years old, female; Abdominal pain; Generalized; Additional info: Upper abd pain TECHNIQUE: Imaging protocol: Axial computed tomography images of the abdomen and pelvis with intravenous contrast. Coronal and sagittal reformatted images were created and reviewed. Radiation optimization: All CT scans at this facility use at least one of these dose optimization techniques: automated exposure control; mA and/or kV adjustment per patient size (includes targeted exams where dose is matched to clinical indication); or iterative reconstruction. Contrast material: ISO; Contrast volume: 100 ml; Contrast route: AC; COMPARISON: CT ABD/PEL W/IV CONTRAST ONLY 01/08/2018 2:10 PM FINDINGS: Lungs: The visualized lung bases demonstrate mild dependent atelectasis. Liver: Normal. No mass. Gallbladder and bile ducts: A stone is newly evident in the gallbladder. Pancreas: Normal. No ductal dilation. Spleen: Normal. No splenomegaly. Adrenals: Normal. No mass. Kidneys and ureters: Normal. No hydronephrosis. Stomach and bowel: The unopacified small bowel is not significantly distended to suggest obstruction. There is again minor descending and sigmoid colonic diverticulosis without evidence for diverticulitis. The large bowel is otherwise grossly unremarkable in appearance. Appendix: The appendix appears normal. Intraperitoneal space: Normal. No free air. No significant fluid collection. Vasculature: Normal. No abdominal aortic aneurysm. Lymph nodes: Normal. No enlarged lymph nodes. Bladder: Unremarkable as visualized. Reproductive: No gross adnexal abnormality is apparent, but ultrasound would be more appropriate in this regard. Bones/joints: Degenerative changes again involve the spine. Soft tissues: A small fat-containing umbilical hernia is again present. IMPRESSION: 1. Cholelithiasis, newly evident as compared with 01/08/18. 2. Persistent minor left-sided colonic diverticulosis without evidence for diverticulitis. 3. Persistent small fat-containing umbilical hernia. Electronically signed by: Lawrence Roberts On 11/11/2018 07:48:11 AM
[2018-11-11 08:54] LABS: BASO # 0.1 10^3/uL (0.0-0.2); BASO % 0.3 % (0.0-1.0); EOS # 0.1 10^3/uL (0.0-0.50); EOS % 0.6 % (0.0-3.0); HEMATOCRIT 34.3 % (36.0-47.0); HEMOGLOBIN 10.5 g/dl (12.0-15.5); LYMPH # 2.6 10^3/uL (1.5-6.5); LYMPH % 15.7 % (24.0-44.0); MEAN CORPUSCULAR HEMOGLOBIN 24.9 pg (27.0-33.0); MEAN CORPUSCULAR HGB CONC 30.6 g/dl (32.0-36.5); MEAN CORPUSCULAR VOLUME 81.3 fl (80.0-96.0); MONO # 0.9 10^3/uL (0.0-0.8); MONO % 5.7 % (0.0-5.0); NEUTROPHILS # 12.7 10^3/uL (1.8-7.7); NEUTROPHILS % 77.3 % (36.0-66.0); PLATELET COUNT, AUTOMATED 337 10^3/uL (150-450); RED BLOOD COUNT 4.22 10^6/uL (4.00-5.40); WHITE BLOOD COUNT 16.5 10^3/uL (4.0-10.0)
[2018-11-11 09:16] LABS: ALBUMIN 3.1 GM/DL (3.2-5.2); BILIRUBIN,DIRECT 0.1 MG/DL (0.0-0.2); BILIRUBIN,TOTAL 0.2 MG/DL (0.2-1.0); TOTAL PROTEIN 6.2 GM/DL (6.4-8.2)
--- NOTE | 2018-11-11 11:08 | REP ---
RIGHT UPPER QUADRANT ULTRASOUND: Real-time sonographic evaluation of the right upper quadrant performed. The gallbladder demonstrates multiple subcentimeter stones and possibly a few tiny subcentimeter polyps in the range of 5 mm. There is gallbladder wall thickening up to 8 mm. There is no pericholecystic fluid. There is no intrahepatic or extrahepatic biliary dilatation, common bile duct measuring 5 mm. Liver and pancreas demonstrate no gross mass, pancreas not optimally seen due to overlying bowel gas. Right kidney demonstrates no hydronephrosis with normal size 12.2 cm in length. IMPRESSION: Multiple subcentimeter gallstones in the gallbladder with possibly a few subcentimeter polyps as well. Diffuse gallbladder wall thickening up to 8 mm. No free fluid or biliary dilatation. Electronically Signed by Axel Phillips MD 11/11/2018 05:07 P
[2018-11-11] MEDS ORDERED: metroNIDAZOLE 500 MG in APPROPRIATE DILUENT 1 EA IV ONE (11:45)
[2018-11-11] MEDS ORDERED: FLAG500T PO (12:32)
[2018-11-11] MEDS ORDERED: CIPR-249 PO (12:32)
[2018-11-11] MEDS ORDERED: NAPR-837 PO (12:32)
[2018-11-11] MEDS ORDERED: CIPROFLOXACIN 400 MG in APPROPRIATE DILUENT 1 EA IV ONE (12:45)
[2018-11-11 14:37] VITALS: BP 128/83
--- NOTE | 2018-11-12 17:52 | CR ---
DATE OF CONSULTATION: 11/11/2018 REASON FOR CONSULTATION: Abdominal pain. HISTORY OF PRESENT ILLNESS: The patient is a 28-year-old female who presents to the emergency room (ER) with a few month history of right upper quadrant pain that has been getting gradually worse. She was evaluated back in March 2018 in the hospital with Dr. Felton for cholelithiasis and acute cholecystitis. She was discharged home. Recommended to followup with him in the office to have elective surgery completed and she apparently was never able to get an appointment scheduled. She now presents with increasing pain. Denies any fevers. Mild nausea and vomiting that has resolved now. She has had the symptoms on-and-off, just been getting slightly worse lately, so she came in for evaluation. In the ER, she did have a white count of 17.9 which improved to 16.5 in the last few hours. Ultrasound of the gallbladder did show multiple gallstones with wall thickening up to 8 mm and no free fluid or biliary dilatation. Therefore, I was called to evaluate. Currently her pain is controlled. She has no heartburn or acid reflux. She does have some pain radiating around the right side but no pain to the shoulder. No changes in bowel movements. No recent trauma to the abdomen or travel. No recent illnesses. She is complaining of pain along her bilateral ribcage. With further questioning, she also has pain pretty much over all of her joints, all of the ribs, the clavicle, even her elbow and wrist and pelvic bone are tender to palpation, and that was her main complaint was the rib pain rather than the abdominal pain. She is not sure if she has a primary. She has not seen one in a long time and has not had any workup or treatment for that. PAST MEDICAL HISTORY: Apparently, she has some new onset diabetes that she is aware about but has not had any treatment for yet, a history of seizures, anxiety. PAST SURGICAL HISTORY: Dental surgery. ALLERGIES: PENICILLIN: MEDICATIONS: Please see medical record. REVIEW OF SYSTEMS: Pertinent positives and negatives as stated in the history of present illness (HPI). SOCIAL HISTORY: Denies current drug, alcohol, or tobacco abuse. FAMILY HISTORY: Noncontributory. PHYSICAL EXAMINATION: GENERAL: Alert and oriented times three, in no acute distress. VITAL SIGNS: Temperature 98.4, pulse 82, respirations 17, blood pressure 128/83, pulse oximetry 98% room air. HEENT: Pupils equally round and react to light and accommodation. HEART: S1, S2, regular rate and rhythm. LUNGS: Clear to auscultation bilaterally. ABDOMEN: Soft, slight tenderness to palpation over the bilateral lower rib cages. No pain in the abdomen. No rebounding or guarding. EXTREMITIES: She has got pain on the wrists, elbows, clavicle and even over the pubic bone. LABORATORY DATA: White count 16.5, hemoglobin 10.5, platelets 337. LFTs are all within normal range. Lipase is 71. IMAGING STUDIES: Gallbladder ultrasound shows multiple gallstones with the gallbladder wall thickening up to 8 mm. No free fluid. ASSESSMENT AND PLAN: The patient is a 28-year-old female with what appears to be chronic calculus cholecystitis, possibly acute on chronic calculus cholecystitis. She also has some unexplainable bone pain diffusely throughout her body. At this time, there is no indication for an emergent procedure. The patient is anxious to get back to work. Therefore, I recommend she be discharged from the emergency room (ER). She can be given oral antibiotics to take for a week due to the elevated white count. She should followup with Dr. Felton in the office to have an elective outpatient procedure scheduled. She also should followup with her primary and if she does not have one then she should get one and have this bone pain evaluated further. All of her questions are answered and she will be discharged from the ER and return if her symptoms happen to get worse.
== END 2018-11-11 14:44 | disposition home or self-care (01) ==
LOC: M ED 01:15 → CANBEDREQ 12:30 → M ED 14:44
DX: K80.10 Calculus of gallbladder with chronic cholecystitis without obstruction (principal); D72.829 Elevated white blood cell count, unspecified; R11.2 Nausea with vomiting, unspecified; I10 Essential (primary) hypertension; J45.991 Cough variant asthma; G43.909 Migraine, unspecified, not intractable, without status migrainosus; F41.1 Generalized anxiety disorder; M19.90 Unspecified osteoarthritis, unspecified site; F17.200 Nicotine dependence, unspecified, uncomplicated; Z79.899 Other long term (current) drug therapy
CPT/HCPCS: 71045; 71275; 74177; 76705; 80048; 80076; 81001; 82550; 82553; 83690; 84703; 85025; 93005; 93041; 94760; 96361; 96365; 96366; 96368; 96375; 99285; C9113; J0744; Q9967

== ENCOUNTER 2018-12-09 09:54 | Day surgery (SDC) | payer MEDICAID ==
[~2018-12-09] VITALS: Ht 162.6 cm; Wt 103.6 kg
[~2018-12-09 09:54] MED LIST changes: +CIPR-249 PO; +FLAG500T PO; +LR 1,000 ML IV ONE
[2018-12-09] MEDS ORDERED: BUPIVACAINE HCL 0.25% 30 ML VIAL As Ordered ONE (11:40)
[2018-12-09 11:49] LABS: HCG, SERUM QUALITATIVE NEGATIVE (NEGATIVE)
[2018-12-09] MEDS ORDERED: PROPOFOL 200 MG/20 ML VIAL As Ordered ONE (12:11)
[2018-12-09] MEDS ORDERED: ONDANSETRON 4MG/2ML VIAL (J2405) As Ordered ONE (12:11)
[2018-12-09] MEDS ORDERED: ROCURONIUM BROMIDE 50 MG/5 ML VIAL As Ordered ONE (12:11)
[2018-12-09] MEDS ORDERED: MIDAZOLAM INJ 2 MG/2 ML VIAL (J2250) As Ordered ONE (12:11)
[2018-12-09] MEDS ORDERED: LIDOCAINE 2% INJ 100 MG/5 ML SDV (FOR ANES.) As Ordered ONE (12:11)
[2018-12-09] MEDS ORDERED: fentaNYL 250 MCG/5 ML INJECTION (J3010) As Ordered ONE (12:11)
[2018-12-09] MEDS ORDERED: dexameTHASONE 4 MG/ML 1ML VIAL (J1100) As Ordered ONE (12:11)
[2018-12-09] MEDS ORDERED: ESMOLOL INJ 100MG/10ML VIAL As Ordered ONE (12:43)
[2018-12-09] MEDS ORDERED: SUGAMMADEX SODIUM 500 MG/5 ML VIAL (BRIDION) As Ordered ONE (12:53)
[2018-12-09] MEDS ORDERED: KETOROLAC 60 MG/2 ML VIAL (J1885) As Ordered ONE (12:53)
[2018-12-09] MEDS ORDERED: HYDROMORPHONE HCL 0.5 MG/ 0.5 ML SYRINGE (J1170 PER 1) As Ordered ONE ×2 (13:39→13:52)
[2018-12-09] MEDS ORDERED: PERCOCET 5MG/325MG TAB As Ordered ONE (13:39)
[2018-12-09] MEDS: HYDROMORPHONE HCL 0.5 MG/ 0.5 ML SYRINGE (J1170 PER 1) IV PRN ×5 (13:40→14:00)
[2018-12-09] MEDS ORDERED: fentaNYL 100 MCG/2 ML INJECTION (J3010) IV PRN (13:45)
[2018-12-09] MEDS ORDERED: ONDANSETRON 4MG/2ML VIAL (J2405) IV PRN (13:45)
[2018-12-09] MEDS ORDERED: LR 1,000 ML IV SCH (13:45)
[2018-12-09] MEDS ORDERED: PERCOCET 5MG/325MG TAB PO PRN (13:45)
[2018-12-09] MEDS ORDERED: ACETAMINOPHEN TAB 650MG DOSE (2X325MG) PO PRN (14:30)
[2018-12-09] MEDS ORDERED: NORCO, ANEXSIA 5/325MG TABLET (HYDROcodone/ACETAMINOPHEN) PO PRN (14:30)
[2018-12-09] MEDS ORDERED: IBUPROFEN 600 MG TAB PO PRN (14:30)
[2018-12-09 15:45] VITALS: BP 132/82
--- NOTE | 2018-12-11 16:12 | RO ---
DATE OF PROCEDURE: 12/09/2018 PREOPERATIVE DIAGNOSIS: Symptomatic gallstones. POSTOPERATIVE DIAGNOSIS: Symptomatic gallstones. PROCEDURE PERFORMED: Laparoscopic cholecystectomy. SURGEON: Dr. Elvis Felton CHIEF TECHNICAL OFFICER: ANESTHESIA: General. INDICATIONS FOR THE PROCEDURE: The patient is a 28-year-old woman who had experienced some upper abdominal discomfort. Evaluation revealed cholelithiasis with a thickened gallbladder wall. She was treated with antibiotics with resolution of her discomfort and is now for a laparoscopic cholecystectomy. DESCRIPTION OF PROCEDURE: The patient was brought to the operating room and placed on the table in a supine position. She was placed under general endotracheal anesthesia. The patient's abdomen was prepped and draped in a sterile fashion. 0.25% Marcaine was infiltrated at the trocars sites as needed. Initial entry was in the left upper quadrant where local anesthesia was achieved, and a small incision was made. A Veress needle was inserted and after a positive hanging drop test, the abdomen was insufflated with carbon dioxide gas. A 5 mm port was placed over the 5 mm scope and advanced through the abdominal wall without difficulty. Initial examination showed abundant omental fat covering the abdominal contents. The liver was visible and appeared normal. The patient was tilted to a slight reverse Trendelenburg position and rolled slightly to the left. 11 mm trocar slightly above and to the right of the umbilicus. Two 5 mm trocars were placed in the right upper quadrant. Graspers were inserted. The edge of the liver was elevated and the gallbladder was found to be quite thickened but contracted. This was grasped and elevated. There was one band of adhesions extending down the lateral aspect of the gallbladder, which was divided with the cautery. Dissection proceeded down to the area of the gallbladder neck. The pericholecystic fibrofatty tissues were opened with the hook cautery. The cystic duct was clearly identified, and this was doubly clipped with hemoclips and divided. The cholecystic artery was also identified, and this was doubly clipped with hemoclips and divided. The gallbladder was then dissected free from the gallbladder bed using cautery dissection. The gallbladder was placed in an Endopouch. The right upper quadrant was irrigated and inspected, and there was no evidence of any bleeding or bile leak. The patient was returned to a flat position. The abdomen was deflated and the trocars were all removed. The gallbladder was recovered through the 11 mm port site, which required extending the skin incision slightly and opening the fascia slightly. The gallbladder was sent for permanent pathology. The rectus muscle fibers remained intact. I was unable to identify the inner layer of the rectus sheath so the outer layer was closed with interrupted simple sutures of #2-0 Vicryl. The skin incisions were all closed with buried #5-0 Vicryl and Steri-Strips. Light dressings were applied. The patient tolerated the procedure well without apparent complication. She was awakened in the operating room, extubated and moved to the recovery room in stable condition.
== END 2018-12-09 15:56 | disposition home or self-care (01) ==
LOC: M SDC 09:54
PROVIDERS: ATTEND Surgery
DX: K80.10 Calculus of gallbladder with chronic cholecystitis without obstruction (principal); J45.909 Unspecified asthma, uncomplicated; K21.9 Gastro-esophageal reflux disease without esophagitis; Z79.51 Long term (current) use of inhaled steroids; F17.210 Nicotine dependence, cigarettes, uncomplicated; F41.9 Anxiety disorder, unspecified; F32.9 Major depressive disorder, single episode, unspecified
CPT/HCPCS: 36415; 47562; 84703; 88304; J1100; J1885; J2250; J2405; J3010

== ENCOUNTER 2019-01-22 06:47 | Emergency (ER) | payer MEDICAID ==
[~2019-01-22] VITALS: Ht 162.6 cm; Wt 103.4 kg
[~2019-01-22 06:47] MED LIST changes: -LR 1,000 ML IV ONE
[2019-01-22] MEDS ORDERED: NS 1,000 ML IV ONE (07:15)
[2019-01-22 07:43] LABS: BASO # 0.1 10^3/uL (0.0-0.2); BASO % 0.6 % (0.0-1.0); EOS # 0.5 10^3/uL (0.0-0.5); EOS % 3.7 % (0.0-3.0); HEMOGLOBIN 11.4 g/dl (12.0-15.5); LYMPH # 2.4 10^3/uL (1.5-5.0); LYMPH % 19.5 % (24.0-44.0); MEAN CORPUSCULAR HEMOGLOBIN 24.4 pg (27.0-33.0); MEAN CORPUSCULAR HGB CONC 30.8 g/dl (32.0-36.5); MEAN CORPUSCULAR VOLUME 79.2 fl (80.0-96.0); MONO # 0.6 10^3/uL (0.0-0.8); MONO % 5.1 % (0.0-5.0); NEUTROPHILS # 8.8 10^3/uL (1.5-8.5); NEUTROPHILS % 70.9 % (36.0-66.0); PLATELET COUNT, AUTOMATED 382 10^3/uL (150-450); RED BLOOD COUNT 4.67 10^6/uL (4.00-5.40); WHITE BLOOD COUNT 12.4 10^3/uL (4.0-10.0)
--- NOTE | 2019-01-22 08:00 | REP ---
Chest x-ray: Two views. History: Cough URI symptoms . Comparison study: November 11, 2018 . Findings: The lungs are well inflated and free of infiltrate. The pleural angles are sharp. The heart size is normal. Pulmonary vasculature is not increased. No significant bony abnormality is seen. Impression: Negative chest x-ray. Electronically Signed by Edgar Win MD 01/22/2019 07:51 A
[2019-01-22 08:07] LABS: ALBUMIN 3.4 GM/DL (3.2-5.2); ALT/SGPT 19 U/L (12-78); BILIRUBIN,DIRECT 0.1 MG/DL (0.0-0.2); BILIRUBIN,TOTAL 0.5 MG/DL (0.2-1.0); BLOOD UREA NITROGEN 7 MG/DL (7-18); CARBON DIOXIDE LEVEL 30 MEQ/L (21-32); CHLORIDE LEVEL 106 MEQ/L (98-107); GLOMERULAR FILTRATION RATE > 60.0 (>60); GLUCOSE, FASTING 96 MG/DL (70-100); SODIUM LEVEL 141 MEQ/L (136-145); TOTAL PROTEIN 7.4 GM/DL (6.4-8.2)
[2019-01-22 08:10] LABS: INFLUENZA A AMPLIFICATION NEGATIVE (NEGATIVE); INFLUENZA B AMPLIFICATION NEGATIVE (NEGATIVE)
[2019-01-22 08:44] VITALS: BP 112/72
== END 2019-01-22 09:05 | disposition home or self-care (01) ==
LOC: M ED 06:47
DX: J06.9 Acute upper respiratory infection, unspecified (principal); D72.829 Elevated white blood cell count, unspecified; D50.9 Iron deficiency anemia, unspecified; Z87.19 Personal history of other diseases of the digestive system; J45.909 Unspecified asthma, uncomplicated; F41.9 Anxiety disorder, unspecified; F32.9 Major depressive disorder, single episode, unspecified; R56.9 Unspecified convulsions; Z87.820 Personal history of traumatic brain injury; F17.210 Nicotine dependence, cigarettes, uncomplicated; Z88.0 Allergy status to penicillin

== ENCOUNTER 2019-02-11 17:52 | Emergency (ER) | payer MEDICAID ==
[~2019-02-11] VITALS: Ht 162.6 cm; Wt 105.9 kg
[2019-02-11] MEDS ORDERED: ONDANSETRON 4MG/2ML VIAL (J2405) IV ONE (19:00)
[2019-02-11] MEDS ORDERED: KETOROLAC 30 MG/ML VIAL (J1885) IV ONE (19:00)
[2019-02-11 19:32] LABS: BASO # 0.1 10^3/uL (0.0-0.2); BASO % 0.6 % (0.0-1.0); EOS # 0.7 10^3/uL (0.0-0.5); EOS % 4.4 % (0.0-3.0); HEMATOCRIT 36.6 % (36.0-47.0); HEMOGLOBIN 11.4 g/dl (12.0-15.5); LYMPH # 3.4 10^3/uL (1.5-5.0); LYMPH % 21.4 % (24.0-44.0); MEAN CORPUSCULAR HEMOGLOBIN 25.3 pg (27.0-33.0); MEAN CORPUSCULAR HGB CONC 31.1 g/dl (32.0-36.5); MEAN CORPUSCULAR VOLUME 81.2 fl (80.0-96.0); MONO % 6.5 % (0.0-5.0); NEUTROPHILS # 10.7 10^3/uL (1.5-8.5); NEUTROPHILS % 66.8 % (36.0-66.0); PLATELET COUNT, AUTOMATED 385 10^3/uL (150-450); RED BLOOD COUNT 4.51 10^6/uL (4.00-5.40)
[2019-02-11] MEDS ORDERED: KETO10TAB PO (22:30)
[2019-02-11 22:35] VITALS: BP 105/60
--- NOTE | 2019-02-12 09:12 | REP ---
PELVIC ULTRASOUND: Real-time sonographic evaluation of the pelvis performed utilizing transabdominal technique. The urinary bladder is empty. Uterus measures 7.5 x 4.7 x 8.5 cm. Endometrial thickness is approximately 6 mm. There is no endometrial fluid collection. Ovaries are normal in size and echotexture, right ovary measuring 3.3 x 1.9 x 1.7 cm and left ovary 3.1 x 2.0 x 2.2 cm. There is no adnexal mass or free fluid. There is no evidence of ovarian torsion with duplex Doppler evaluation. IMPRESSION: Negative pelvic ultrasound. Preliminary report provided by [facility] at the time of the exam. Electronically Signed by Axel Phillips MD 02/14/2019 10:15 A
== END 2019-02-11 22:49 | disposition home or self-care (01) ==
LOC: M ED 17:52
DX: R10.2 Pelvic and perineal pain (principal); D72.829 Elevated white blood cell count, unspecified; N64.4 Mastodynia; Z87.820 Personal history of traumatic brain injury; Z86.69 Personal history of other diseases of the nervous system and sense organs; R35.0 Frequency of micturition; F17.210 Nicotine dependence, cigarettes, uncomplicated; J45.909 Unspecified asthma, uncomplicated; Z88.0 Allergy status to penicillin
CPT/HCPCS: 76856; 80047; 81001; 84702; 85025; 96374; 96375; 99284; J1885; J2405

== ENCOUNTER → 2019-06-10 | Outpatient (REF) | payer OTHER ==
[2019-06-10 18:58] LABS: APPEARANCE, URINE CLOUDY (CLEAR); BACTERIA, URINE AUTO 2+ (NEGATIVE); BILIRUBIN, URINE AUTO NEGATIVE (NEGATIVE); BLOOD, URINE BLOOD 2+ (NEGATIVE); COLOR, URINE YELLOW (YELLOW); GLUCOSE, URINE (UA) AUTO NEGATIVE (NEGATIVE); KETONE, URINE AUTO NEGATIVE (NEGATIVE); LEUKOCYTE ESTERASE, URINE AUTO 3+ (NEGATIVE); MUCUS, URINE SMALL (NEGATIVE); NITRITE, URINE AUTO POSITIVE (NEGATIVE); PROTEIN, URINE AUTO NEGATIVE (NEGATIVE); RBC, URINE AUTO 2 /HPF (0-3); SPECIFIC GRAVITY URINE AUTO 1.021 (1.002-1.035); SQUAMOUS EPITHELIAL CELL UR AU 4 /HPF (0-6); UROBILINOGEN, URINE AUTO 0.2 mg/dL (0.0-2.0); WBC, URINE AUTO 11 /HPF (0-3)
== END ==
LOC: M LAB REF 18:19
PROVIDERS: ATTEND Physician Assistant
DX: R30.0 Dysuria (principal)

== ENCOUNTER 2020-01-19 14:16 | Emergency (ER) | payer OTHER ==
[~2020-01-19] VITALS: Ht 162.6 cm; Wt 97.0 kg
[2020-01-19] MEDS ORDERED: otc iron (14:24)
[2020-01-19] MEDS ORDERED: prenatal vit (14:24)
[2020-01-19 16:30] LABS: BASO # 0.1 10^3/uL (0.0-0.2); BASO % 0.4 % (0.0-1.0); EOS # 0.3 10^3/uL (0.0-0.5); EOS % 2.2 % (0.0-3.0); HEMATOCRIT 39.3 % (36.0-47.0); HEMOGLOBIN 12.5 g/dl (12.0-15.5); LYMPH % 19.4 % (24.0-44.0); MEAN CORPUSCULAR HEMOGLOBIN 26.5 pg (27.0-33.0); MEAN CORPUSCULAR HGB CONC 31.8 g/dl (32.0-36.5); MEAN CORPUSCULAR VOLUME 83.3 fl (80.0-96.0); MONO # 0.8 10^3/uL (0.0-0.8); MONO % 5.3 % (0.0-5.0); NEUTROPHILS # 11.2 10^3/uL (1.5-8.5); NEUTROPHILS % 72.3 % (36.0-66.0); PLATELET COUNT, AUTOMATED 387 10^3/uL (150-450); RED BLOOD COUNT 4.72 10^6/uL (4.00-5.40); WHITE BLOOD COUNT 15.5 10^3/uL (4.0-10.0)
[2020-01-19 16:55] LABS: BLOOD UREA NITROGEN 10 MG/DL (7-18); CARBON DIOXIDE LEVEL 26 MEQ/L (21-32); CHLORIDE LEVEL 103 MEQ/L (98-107); CREATININE FOR GFR 0.49 MG/DL (0.55-1.30); GLOMERULAR FILTRATION RATE > 60.0 (>60); GLUCOSE, FASTING 77 MG/DL (70-100); HCG, SERUM QUANTITATIVE 32063 MIU/ML; POTASSIUM SERUM 4.6 MEQ/L (3.5-5.1); SODIUM LEVEL 134 MEQ/L (136-145)
--- NOTE | 2020-01-19 17:45 | REPVR ---
PROCEDURE INFORMATION: Exam: US First Trimester, Transabdominal Exam date and time: 01/19/2020 5:36 PM Age: 29 years old Clinical indication: complicated by abdominal or pelvic pain; Generalized abdominal pain; First trimester; Gestational age or lmp: 6; ; Additional info: +preg test, unknown lmp, abd pain TECHNIQUE: Imaging protocol: Real-time transabdominal obstetrical ultrasound of the maternal pelvis and a first trimester , less than 14 weeks 0 days, with image documentation. COMPARISON: No relevant prior studies available. FINDINGS: Gestation: Single gestational sac demonstrated in the uterine fundus. Single pole demonstrated within the gestational sac measuring 6 mm. Embryonic/ heart rate: heart rate is 114 bpm. Placenta: Unremarkable. No subchorionic bleed. Amniotic fluid: Amniotic fluid is normal for gestational age. BIOMETRY: Gestational age (AUA): Gestational age based on crown-rump length is 6 weeks 3 days in this patient with unknown LMP. Estimated due date (AUA): JUAN 09/10/2020. MATERNAL: Uterus: Unremarkable. Cervix: Unremarkable. Right adnexa: Unremarkable. Left adnexa: Unremarkable. Intraperitoneal space: No intraperitoneal free fluid. IMPRESSION: Unremarkable scan at 6 weeks 3 days as described above. Electronically signed by: Jose Andrade On 01/19/2020 17:45:03 PM
[2020-01-19 18:15] VITALS: BP 136/93
== END 2020-01-19 18:29 | disposition home or self-care (01) ==
LOC: M ED 14:16
DX: O26.899 Other specified pregnancy related conditions, unspecified trimester (principal); R10.9 Unspecified abdominal pain; Z3A.01 Less than 8 weeks gestation of pregnancy; Z88.0 Allergy status to penicillin; Z88.1 Allergy status to other antibiotic agents; Z79.899 Other long term (current) drug therapy

== ENCOUNTER → 2020-02-16 | Outpatient (REF) | payer OTHER ==
[~2020-02-16] MED LIST changes: +otc iron; +prenatal vit
== END ==
LOC: M SFHCWAGY 13:55
PROVIDERS: ATTEND Advanced Practice Midwife
DX: Z12.4 Encounter for screening for malignant neoplasm of cervix (principal)

== ENCOUNTER → 2020-02-17 | Outpatient (REF) | payer OTHER ==
[2020-02-17 13:49] LABS: HEMATOCRIT 38.4 % (36.0-47.0); MEAN CORPUSCULAR HEMOGLOBIN 26.6 pg (27.0-33.0); MEAN CORPUSCULAR HGB CONC 31.3 g/dl (32.0-36.5); MEAN CORPUSCULAR VOLUME 85.1 fl (80.0-96.0); PLATELET COUNT, AUTOMATED 341 10^3/uL (150-450); RED BLOOD COUNT 4.51 10^6/uL (4.00-5.40); WHITE BLOOD COUNT 14.2 10^3/uL (4.0-10.0)
[2020-02-17 14:18] LABS: TOTAL PROTEIN,RANDOM URINE 18.2 MG/DL (0.0-12.0)
[2020-02-17 14:19] LABS: HEMOGLOBIN A1c 5.4 %
[2020-02-17 14:24] LABS: ALT/SGPT 17 U/L (12-78); BILIRUBIN,TOTAL 0.4 MG/DL (0.2-1.0); CREATININE FOR GFR 0.53 MG/DL (0.55-1.30); FREE T4 0.89 NG/DL (0.76-1.46); GLOMERULAR FILTRATION RATE > 60.0 (>60); GLUCOSE CHALLENGE TEST 1 HOUR 139 MG/DL (LESS THAN 140); LDH LACTATE DEHYDROGENASE 110 U/L (84-246); THYROID STIMULATING HORMONE 0.293 uIU/ML (0.358-3.740); URIC ACID 3.2 MG/DL (2.6-6.0)
[2020-02-17 15:03] LABS: HEPATITIS C VIRUS ABY INDEX 0.1 INDEX (<0.8); HIV 1&2 SCREEN CENTAUR NEGATIVE (NEGATIVE)
== END ==
LOC: M PLALAB 09:58
PROVIDERS: ATTEND Advanced Practice Midwife
DX: O99.211 Obesity complicating pregnancy, first trimester (principal); E66.9 Obesity, unspecified

== ENCOUNTER → 2020-03-28 | Outpatient (CLI) | payer OTHER | LOC: M WHC 09:47 | PROVIDERS: ATTEND Obstetrics & Gynecology | DX: Z3A.16 16 weeks gestation of pregnancy (principal) ==

== ENCOUNTER → 2020-04-26 | Outpatient (CLI) | payer OTHER ==
--- NOTE | 2020-04-26 12:49 | REP ---
INDICATION: ANATOMY COMPARISON: None. TECHNIQUE: Transabdominal obstetrical ultrasound with color Doppler evaluation. FINDINGS: Examination demonstrates a single live intrauterine in variable presentation. motion is identified by technologist. Placenta is noted anterior and grade 1 without evidence for placenta previa or abruption. Amniotic fluid volume is normal. Cervix measures 4.4 cm in length and appears closed.. Gestational age by 1st U/S 20 weeks 3 days with JUAN 09/10/2020. Gestational age by current measurements 21 weeks 6 days with JUAN 08/31/2020. FHR equals 156 beats per minute. BPD: 5.1 cm 21 weeks 4 days HC: 19.5 cm 21 weeks 5 days AC: 17.5 cm 22 weeks 3 days FL: 3.7 cm 21 weeks 5 days HL: 3.6 cm 22 weeks 2 days HC/AC: 1.11 Estimated weight 470 g (54th percentile based on age by current measurements; greater than 97th percentile based on age by 1st ultrasound) Anatomical assessment demonstrates normal structures including cranium, choroid plexus, cavum, cerebellum/posterior fossa, facial features, lungs, four-chamber heart/ventricular outflow tracts, diaphragm, stomach, cord insertion/three-vessel cord, kidneys/bladder, spine, and extremities. IMPRESSION: Single live intrauterine in variable presentation. Estimated weight discrepancy as described above. Anatomical assessment is complete and normal. <Electronically signed by Alejandro Gallardo > 04/26/20 [id number]
== END ==
LOC: M WHC 07:58
PROVIDERS: ATTEND Obstetrics & Gynecology
DX: Z34.92 Encounter for supervision of normal pregnancy, unspecified, second trimester (principal); Z3A.21 21 weeks gestation of pregnancy

== ENCOUNTER → 2020-05-23 | Outpatient (REF) | payer OTHER | LOC: M PLALAB 08:06 | PROVIDERS: ATTEND Obstetrics & Gynecology | DX: Z3A.24 24 weeks gestation of pregnancy (principal) ==

== ENCOUNTER → 2020-06-06 | Outpatient (REF) | payer OTHER ==
[2020-06-06 19:35] LABS: HEMOGLOBIN A1c 5.5 %
[2020-06-06 19:37] LABS: HEMOGLOBIN 10.6 g/dl (12.0-15.5); MEAN CORPUSCULAR HEMOGLOBIN 25.8 pg (27.0-33.0); MEAN CORPUSCULAR HGB CONC 30.3 g/dl (32.0-36.5); MEAN CORPUSCULAR VOLUME 85.2 fl (80.0-96.0); PLATELET COUNT, AUTOMATED 375 10^3/uL (150-450); RED BLOOD COUNT 4.11 10^6/uL (4.00-5.40); WHITE BLOOD COUNT 14.7 10^3/uL (4.0-10.0)
== END ==
LOC: M PLALAB 17:48
PROVIDERS: ATTEND Obstetrics & Gynecology
DX: Z36.89 Encounter for other specified antenatal screening (principal); Z3A.24 24 weeks gestation of pregnancy

== ENCOUNTER → 2020-06-17 | Outpatient (CLI) | payer OTHER ==
[~2020-06-17] MED LIST changes: +NITR100C2 PO
--- NOTE | 2020-06-17 15:08 | REP ---
INDICATION: F/U ANATOMY. JUAN from for sonography 10 Sep 2020, 27 weeks 6 day expected gestational age estimate. COMPARISON: Comparison sonogram 26 April 2020.. TECHNIQUE: Transabdominal obstetric sonography. FINDINGS: Scanning through the gravid uterus demonstrates a viable single intrauterine gestation in cephalic lie. motion is observed and heart rate is recorded at 158 beats per minute. A anterior placenta is seen, grade 1, without evidence of placenta previa. Closed cervical length is measured at 3.5 cm transabdominally. No extrauterine abnormality is observed. Amniotic fluid is subjectively normal, ASCENCION normal 19.1 cm.. The following anatomic structures are identified today and felt to be unremarkable: cranium, face and profile, four-chamber heart view, left-sided stomach, right kidney left kidney, urinary bladder, spine, three-vessel cord.. Biometry chart: BPD 7.6 cm, 30 weeks 4 days Head circumference 28.6 cm, 31 weeks 3 days Abdominal circumference 25.9 cm, 30 weeks 1 day Femur length 5.5 cm, 29 weeks 1 day Humeral length 5.1 cm, 30 weeks 0 days HC AC ratio normal 1.10 Cephalic index normal 0.74 Estimated weight 1482 g, 3 lb 4 oz, greater than 97th percentile for 27 weeks 6 days IMPRESSION: Viable single intrauterine gestation at 30 weeks 2 days by today's composite sonographic criteria. JUAN by today's sonography August 24, 2020. No complication identified. Expected gestational age estimate based on prior sonography is 27 weeks 6 days, JUAN 10 Sep 2020. <Electronically signed by Gerard Win > 06/17/20 [id number]
== END ==
LOC: M WHC 12:18
PROVIDERS: ATTEND Obstetrics & Gynecology
DX: O24.313 Unspecified pre-existing diabetes mellitus in pregnancy, third trimester (principal); Z3A.30 30 weeks gestation of pregnancy

== ENCOUNTER 2020-06-24 20:55 | Outpatient (CLI) | payer OTHER ==
[~2020-06-24] VITALS: Ht 162.6 cm; Wt 116.7 kg
[~2020-06-24 20:55] MED LIST changes: -NITR100C2 PO
[2020-06-24 21:09] VITALS: BP 85/40
[2020-06-24 22:11] LABS: APPEARANCE, URINE HAZY (CLEAR); BACTERIA, URINE AUTO 1+ (NEGATIVE); BILIRUBIN, URINE AUTO NEGATIVE (NEGATIVE); BLOOD, URINE BLOOD NEGATIVE (NEGATIVE); COLOR, URINE YELLOW (YELLOW); GLUCOSE, URINE (UA) AUTO NEGATIVE (NEGATIVE); KETONE, URINE AUTO TRACE mg/dL (NEGATIVE); LEUKOCYTE ESTERASE, URINE AUTO TRACE (NEGATIVE); NITRITE, URINE AUTO NEGATIVE (NEGATIVE); PROTEIN, URINE AUTO NEGATIVE (NEGATIVE); RBC, URINE AUTO 2 /HPF (0-3); SPECIFIC GRAVITY URINE AUTO 1.026 (1.002-1.035); SQUAMOUS EPITHELIAL CELL UR AU 3 /HPF (0-6); UROBILINOGEN, URINE AUTO 0.2 mg/dL (0.0-2.0); WBC, URINE AUTO 6 /HPF (0-3)
[2020-06-24] MEDS ORDERED: NITROFURANTOIN (MACROBID) 100 MG CAP PO SCH (22:15)
[2020-06-24] MEDS ORDERED: NITR100C2 PO (22:29)
--- NOTE | 2020-06-24 22:53 | IPNPDOC ---
Text Note Date of Service The patient was seen on 06/24/20. NOTE Outpatient 29yo JUAN 09/10/2020. Presents at 28wks with complaints of back pain that radiates around to her lower abdomen. Reports they range from 15minutes to an hour apart. Denies LOF, bleeding. Fetus is very active. VSS, afebrile Negative CVAT "Oh, thank you for my massage" Abdomen soft, gravid, nontender. Fetus very active. Cat I tracing, no UC Urine very concentrated. Ketones, leuk esterase and WBC noted Start macrobid. Enc to markedly increase her fluid intake Abdominal binder provided. Discharged home with instructions. Keep next appt. VS,Fishbone, I+O VS, Fishbone, I+O Vital Signs Date Time Temp Pulse Resp B/P (MAP) Pulse Ox O2 Delivery O2 Flow Rate FiO2 06/24/20 21:09 97.6 111 85/40 (55) Iva Chatman CNM Jun 24, 2020 22:53
== END 2020-06-24 22:45 | disposition home or self-care (01) ==
LOC: M LDO 20:55
PROVIDERS: ATTEND Advanced Practice Midwife
DX: O23.43 Unspecified infection of urinary tract in pregnancy, third trimester (principal); Z3A.28 28 weeks gestation of pregnancy

== ENCOUNTER → 2020-07-06 | Outpatient (REF) | payer OTHER ==
[~2020-07-06] MED LIST changes: +NITR100C2 PO
== END ==
LOC: M SMT 16:51
PROVIDERS: ATTEND Advanced Practice Midwife
DX: O24.313 Unspecified pre-existing diabetes mellitus in pregnancy, third trimester (principal)

== ENCOUNTER → 2020-07-20 | Outpatient (CLI) | payer OTHER ==
--- NOTE | 2020-07-22 04:47 | REP ---
INDICATION: GROWTH,DIABETES COMPARISON: 06/17/2020 TECHNIQUE: Transabdominal obstetrical ultrasound with color Doppler evaluation. FINDINGS: Examination demonstrates a single live intrauterine in cephalic presentation. motion is identified by technologist. Placenta is noted anterior and grade 1 without evidence for placenta previa or abruption. Amniotic fluid volume is normal. Cervix measures 3.8 cm in length and appears closed.. Gestational age by 1st U/S 32 weeks 4 days with JUAN 09/10/2020. Gestational age by current measurements 35 weeks 6 days with JUAN 08/18/2020. FHR equals 139 beats per minute. BPD: 9.1 cm at 36 weeks 5 days HC: 32.4 cm at 36 weeks 5 days AC: 33.5 cm at 37 weeks 3 days FL: 6.5 cm at 33 weeks 4 days HL: 6.0 cm at 35 weeks 0 days HC/AC: 0.97 Estimated weight 2903 grams (greater than 97thpercentile based on age by 1st ultrasound). ASCENCION: 11.9 cm IMPRESSION: Single live advanced gestation in cephalic presentation. Greater than expected interval growth is noted and correlation is required. <Electronically signed by Alejandro Gallardo > 07/22/20 [id number]
== END ==
LOC: M WHC 07:37
PROVIDERS: ATTEND Obstetrics & Gynecology
DX: Z36.9 Encounter for antenatal screening, unspecified (principal); O24.312 Unspecified pre-existing diabetes mellitus in pregnancy, second trimester; Z3A.35 35 weeks gestation of pregnancy

== ENCOUNTER → 2020-07-26 | Outpatient (CLI) | payer OTHER | LOC: M WHC 12:45 | PROVIDERS: ATTEND Obstetrics & Gynecology | DX: O24.313 Unspecified pre-existing diabetes mellitus in pregnancy, third trimester (principal); O10.013 Pre-existing essential hypertension complicating pregnancy, third trimester; Z53.9 Procedure and treatment not carried out, unspecified reason; Z3A.00 Weeks of gestation of pregnancy not specified ==

== ENCOUNTER → 2020-08-09 | Outpatient (REF) | payer OTHER | LOC: M SFHCWAGY 17:48 | PROVIDERS: ATTEND Advanced Practice Midwife | DX: Z36.89 Encounter for other specified antenatal screening (principal); Z3A.35 35 weeks gestation of pregnancy ==

== ENCOUNTER → 2020-08-15 | Outpatient (CLI) | payer OTHER ==
--- NOTE | 2020-08-15 16:06 | REP ---
INDICATION: PRE EXISTING DIABETES,HYPERTENSION,GROWTH,ASCENCION. COMPARISON: 07/20/2020. TECHNIQUE: Real-time sonographic evaluation of the gravid uterus performed. FINDINGS: Estimated gestational age is36 weeks 2 days, EDC 09/10/2020. Today's measurements again indicate greater than expected growth. Presentation: Cephalic Placenta anterior, grade 2, without evidence of placenta previa. heart rate is recorded at 156 beats per minute. Amniotic fluid is subjectively normal. ASCENCION 17.8, normal range 7.6-24.7. Biometry chart: BPD: 98 mm, 40 weeks 0 days, greater than 95th percentile. HC: 358 mm, greater than 40 weeks AC: 376 mm, 41 weeks 4 days, greater than 95th percentile Femur length: 80 mm, 41 weeks 0 days, greater than 95th percentile HC to AC ratio: 0.95, normal range 0.92-1.11. Estimated weight: 4351g, greater than 97th percentile. SD ratio umbilical artery 2.64, normal range 1.62-3.49. RI 0.62, normal range 0.44-0.71. IMPRESSION: Viable single intrauterine gestation as above. Greater than expected growth again noted as identified on prior study. <Electronically signed by Axel Phillips > 08/15/20 [id number]
== END ==
LOC: M WHC 11:05
PROVIDERS: ATTEND Advanced Practice Midwife
DX: Z36.2 Encounter for other antenatal screening follow-up (principal); O24.313 Unspecified pre-existing diabetes mellitus in pregnancy, third trimester; O10.013 Pre-existing essential hypertension complicating pregnancy, third trimester; Z3A.36 36 weeks gestation of pregnancy

== ENCOUNTER → 2020-08-15 | Outpatient (CLI) | payer OTHER | LOC: M LABSMTC 09:27 | PROVIDERS: ATTEND Specialist | DX: Z20.822 Contact with and (suspected) exposure to COVID-19 (principal) ==

== ENCOUNTER 2020-08-20 07:38 | Inpatient (IN) | payer OTHER ==
[~2020-08-20] VITALS: Ht 162.6 cm; Wt 123.4 kg
[2020-08-20] VITALS (11 sets, daily range): BP systolic 117–144; BP diastolic 73–92
[~2020-08-20 07:38] MED LIST changes: -prenatal vit; +prenatal vit PO
[2020-08-20] MEDS ORDERED: METF500T13 PO (08:04)
[2020-08-20] MEDS ORDERED: LACTATED RINGER'S 1000 ML IV STA (09:25)
[2020-08-20] MEDS ORDERED: OXYTOCIN INJ 10 UNITS/ML VIAL (J2590) IM PRN (09:25)
[2020-08-20] MEDS ORDERED: ceFAZolin SOD 3 GM IV Place Holder IV ONE (09:25)
[2020-08-20] MEDS ORDERED: BICITRA 30ML SOLN UDC PO ONE (09:25)
[2020-08-20] MEDS ORDERED: OXYTOCIN INJ 10 UNITS/ML VIAL (J2590) IV PRN (09:25)
[2020-08-20] MEDS ORDERED: LR 1,000 ML IV SCH ×3 (09:25→16:30)
[2020-08-20] MEDS ORDERED: LIDOCAINE 1% MDV 20ML VIAL INFIL PRN (09:25)
[2020-08-20] MEDS ORDERED: CARBOPROST TROMETHAMINE 250 MCG/ML AMP IM PRN (09:25)
[2020-08-20] MEDS ORDERED: METHYLERGONOVINE MALEATE 0.2 MG/ML VIAL (J2210) IM PRN (09:25)
[2020-08-20] MEDS ORDERED: OXYTOCIN DRIP 30 UNITS in IV 1 EA IV PRN ×6 (09:25)
[2020-08-20] MEDS ORDERED: TRANEXAMIC ACID INJection 1,000 MG in NS 100 ML IV PRN (09:25)
--- NOTE | 2020-08-20 09:29 | HPEPDOC ---
Obstetrical History & Physical General Date of Admission August 20, 2020 at 07:38 History of Present Illness 30-year-old at 37+ weeks gestation. Presents for an induction of labor. Indication for induction: chronic hypertension, pregestational diabetes She denies vaginal bleeding, loss of fluid or painful, frequent uterine contractions. She reports regular movement. She denies headache, visual changes, right upper quadrant pain, shortness of breath or chest pain. course: 1.Chronic hypertension 2. Pre-gestational diabetes; metformin 500 mg twice a day, hemoglobin A1c 5.5 on 05/23/2020 3. Anemia; ferrous sulfate 325 mg once daily 4. macrosomia; EFW greater than the 97th percentile on 08/15 4300 g. Patient declined our initial offer for a primary low transverse section. See record 5. 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 9 oz., Sochx: No tobacco, alcohol or drug use FamHx: Diabetes, colon cancer, hypertension labs: Blood type O+, antibody screen negative, HepBsAg neg, HIV neg, rubella immune, Hep C antibody negative, RPR nonreactive, CT/GC neg, urine culture negative, GBS negative Past Medical History Allergies Coded Allergies: Penicillins (Verified Allergy, Intermediate, hives, 12/09/18) amoxicillin (Verified Allergy, Intermediate, HIVES, 12/09/18) Medications Scheduled Metformin HCl (Metformin HCl) 500 Mg Tablet, 1 TAB PO DAILY [ vit] , 1 TAB PO DAILY Physical Examination Physical Examination GENERAL: Alert and oriented times three. ABDOMEN: Gravid and non-tender to touch. EFW by Terry's consistent with ultrasound FETUS: Is vertex (VTX) by sterile vaginal examination (SVE), fetus is vertex (VTX) by Terry. HEART RATE: Regular rate and rhythm. LUNGS: Clear to auscultation (CTA). EXTREMITIES: No edema. No clonus SVE: FT/25/-3 EFM: Category 1 Stirling: irregular contractions. Vital Signs/I&O Vital Signs Date Time Temp Pulse Resp B/P (MAP) Pulse Ox O2 Delivery O2 Flow Rate FiO2 08/20/20 07:56 98.1 116 20 139/87 (104) 96 Room Air Laboratory Data 24H LABS Laboratory Tests 2 08/20/20 08:02: Serology Scanned Report Hepatitis B Testing Assessment/Plan Assessment 30yo at 37+0 weeks. CHTN, pregest DM, and macrosomia. Reiterated offer of PLTCS to reduce risk of shoulder dystocia/ injury. Patient has changed her mind and has decided to proceed with PLTCS. Plan Admit and orient. Load Out Person and consent. Labs and intravenous (IV) per unit protocol. R/b/a/i of PLTCS vs reviewed. Patient has signed informed consent for PLTCS. Anesthesia / Peds / L&D staff notified of decision. Preparations for the OR being made. SCOTTY DONG DO August 20, 2020 09:29
[2020-08-20 09:39] LABS: HEMATOCRIT 33.8 % (36.0-47.0); HEMOGLOBIN 10.5 g/dl (12.0-15.5); MEAN CORPUSCULAR HEMOGLOBIN 24.6 pg (27.0-33.0); MEAN CORPUSCULAR HGB CONC 31.1 g/dl (32.0-36.5); MEAN CORPUSCULAR VOLUME 79.3 fl (80.0-96.0); PLATELET COUNT, AUTOMATED 351 10^3/uL (150-450); RED BLOOD COUNT 4.26 10^6/uL (4.00-5.40); WHITE BLOOD COUNT 13.4 10^3/uL (4.0-10.0)
[2020-08-20] MEDS ORDERED: ceFAZolin SOD 2 GM in IV 1 EA IV ONE (10:00)
[2020-08-20] MEDS ORDERED: ceFAZolin SOD 1 GM in D5W MINI-BAG PLUS 50 ML IV ONE (10:00)
[2020-08-20] MEDS ORDERED: D5W 1,000 ML IV SCH (10:30)
[2020-08-20] MEDS ORDERED: OXYTOCIN INJ 10 UNITS/ML VIAL (J2590) As Ordered ONE (14:49)
[2020-08-20] MEDS ORDERED: dexameTHASONE 4 MG/ML 1ML VIAL (J1100 PER 1MG) As Ordered ONE (14:49)
[2020-08-20] MEDS ORDERED: MORPHINE PRES-FREE INJ 10 MG/10 ML VIAL (J2274) As Ordered ONE (14:49)
[2020-08-20] MEDS ORDERED: KETOROLAC 60MG 2ML VIAL As Ordered ONE (14:49)
[2020-08-20] MEDS ORDERED: ONDANSETRON 4MG/2ML VIAL As Ordered ONE (14:49)
[2020-08-20] MEDS ORDERED: fentaNYL 100 MCG/2 ML INJECTION (J3010) As Ordered ONE (14:49)
[2020-08-20] MEDS ORDERED: METOCLOPRAMIDE INJ 10MG/2ML VIAL (J2765 PER 1) IV PRN (14:59)
[2020-08-20] MEDS ORDERED: NALBUPHINE HCL 10 MG/ML AMP (J2300) IV PRN (14:59)
[2020-08-20] MEDS ORDERED: diphenhydrAMINE 50MG/ML VIAL (J1200) IV PRN (14:59)
[2020-08-20] MEDS ORDERED: ONDANSETRON 4MG/2ML VIAL IV PRN ×3 (14:59→16:30)
[2020-08-20] MEDS ORDERED: NALOXONE INJ 0.4MG/1ML VIAL (J2310 PER 1MG) IV PRN ×2 (14:59)
[2020-08-20] MEDS ORDERED: ePHEDrine SULFATE 25 MG/5 ML(5MG/ML) SYRINGE As Ordered ONE (15:13)
[2020-08-20] MEDS ORDERED: OXYTOCIN 30 UNITS IN 0.9% NaCl 500ML IV BAG (J2590) As Ordered ONE (15:27)
[2020-08-20] MEDS ORDERED: PERCOCET 5MG/325MG TAB PO PRN (16:10)
[2020-08-20] MEDS ORDERED: ACETAMINOPHEN 500 MG TAB PO PRN (16:10)
[2020-08-20] MEDS ORDERED: RHOGAM 300 MCG (1500 IU) INJ (J2790) IM SCH (16:10)
[2020-08-20] MEDS ORDERED: MEASLES,MUMPS,RUBELLA VACCINE INJ (MMR-II) (90707) SC SCH (16:10)
[2020-08-20] MEDS ORDERED: OXYTOCIN DRIP 30 UNITS in IV 1 EA IV SCH (16:10)
--- NOTE | 2020-08-20 16:14 | ROOPDOC ---
[facility] Report Of Operation Report of Operation DATE OF PROCEDURE: 08/20/2020 PREPROCEDURE DIAGNOSES:. 37+ weeks gestation. Pre-gestational diabetes. Chronic hypertension. macrosomia POSTPROCEDURE DIAGNOSES: Same PROCEDURE: Primary low transverse section SURGEON: Raj Olivas DO FACOG CRAP SHOOTER: None ANESTHESIA: Spinal ESTIMATED BLOOD LOSS: 600 mL. IV FLUIDS: 1500 mL LR URINE OUTPUT: 50 mL COMPLICATIONS: None. PREOPERATIVE ANTIBIOTICS: Ancef 3g IV x 1. COMPLICATIONS: none DATA: Apgars 8 and 9. Birthweight 4060 g, 8 lbs 15 oz. SPECIMENS: none PRIMARY INDICATION FOR : macrosomia DESCRIPTION OF PROCEDURE: The patient was counseled on the risks, benefits, indications and alternatives of the procedure. Informed consent was obtained. She was taken to the operating room with IV running and placed on the operating table in the dorsal supine position with a leftward tilt. Regional anesthesia was found to be adequate. Sequential compression devices were placed on the lower extremities. A Barrett catheter was placed under sterile conditions. She was prepared and draped in normal sterile fashion. A time out was performed per protocol. Regional anesthesia was again found to be adequate. A Pfannenstiel skin incision was made with the 10 blade. The 10 blade was used to dissect down to the level of the rectus sheath fascia. The rectus sheath pressure was incised midline and this was extended bilaterally with Sam scissors , and manual stretch. The rectus muscle bellies were dissected off the rectus sheath fascia superiorly and inferiorly using both sharp and blunt dissection. The midline was identified. The peritoneum was identified and entered digitally. The peritoneal opening was extended with manual stretch. The Mobius retractor was placed. The vesicouterine peritoneum was dissected with Metzenbaum scissors to create the bladder flap. A low transverse uterine incision was made with the 10 blade. This was extended with manual stretch. The amniotic sac was punctured, and clear fluid was noted. The baby delivered through the hysterotomy without difficulty. The cord was doubly clamped and cut, and the baby was handed off to awaiting care. data shown above. The placenta was removed manually. The intrauterine cavity was cleared of all clot and debris. The hysterotomy was closed with 0 Vicryl in running locked fashion. This was reinforced with a second imbricating layer using 0 Vicryl in running fashion. Excellent hemostasis of the hysterotomy was noted. The pelvis was irrigated and the fluid suctioned. The Mobius retractor was removed. The peritoneum was closed with 3-0 Vicryl running fashion. The rectus muscle bellies were reapproximated with interrupted stitches using 3-0 Vicryl. The rectus muscles bellies were hemostatic. The rectus sheath fascia was closed with 0 Vicryl running fashion. The subcutaneous layer was irrigated and the fluid suctioned. Small bleeding vessels were cauterized with Bovie. Excellent hemostasis was noted. The subcutaneous layer was reapproximated with 3-0 Vicryl running fashion. Skin was closed with 3-0 Monocryl in subcuticular fashion. An Optifoam bandage was placed over the closed incision. Sponge, needle and instru ment counts were correct per protocol throughout the procedure. The patient tolerated the entire procedure very well. She was transferred to the PACU in stable condition. DO REBECCA Manriquez JONATHAN R. DO August 20, 2020 16:14
[2020-08-20] MEDS ORDERED: fentaNYL 100 MCG/2 ML INJECTION (J3010) IV PRN (16:30)
[2020-08-20] MEDS ORDERED: oxyCODONE 5MG TAB PO PRN (16:30)
[2020-08-20] MEDS: LR 1,000 ML IV SCH ×2 (16:59→21:14)
[2020-08-20] MEDS: PERCOCET 5MG/325MG TAB PO PRN (18:32)
[2020-08-20] MEDS: metFORMIN (GLUCOPHAGE) 500MG TAB PO SCH (21:13)
[2020-08-20] MEDS: DOCUSATE SODIUM 100MG CAPSULE PO SCH (21:13)
[2020-08-20] MEDS: KETOROLAC 30 MG/ML 1ML VIAL IV SCH (21:13)
[2020-08-20] MEDS: ENOXAPARIN 60MG/0.6ML SYRINGE (J1650 PER 10MG) SC SCH (21:14)
[2020-08-21 02:00] VITALS: BP 119/60
[2020-08-21] MEDS: KETOROLAC 30 MG/ML 1ML VIAL IV SCH ×2 (03:58→09:39)
[2020-08-21 05:53] VITALS: BP 108/65
[2020-08-21] MEDS: LR 1,000 ML IV SCH ×2 (07:30→12:56)
--- NOTE | 2020-08-21 08:05 | IPNPDOC ---
Progress Note Date of Service: August 21, 2020 Day#: 1 Progress Note SUBJECT: Status post PLTCS She has been ambulating, voiding spontaneously without issue and tolerating regular diet. Lochia decreasing/minimal. Pain is well-controlled. Incision bandage is clean/unsaturated. Denies headache, visual changes, right upper quadrant pain, shortness of breath or chest pain. OBJECTIVE: VITAL SIGNS: Within normal limits, afebrile. Alert and oriented times three. Abdomen: Fundus firm at U-2. Soft, NTTP. Incision bandage not soaked through ASSESSMENT: Status post uncomplicated PLTCS. Vitals within normal limits, afebrile, hemodynamically stable with no evidence of infection. PLAN: Discharge to home tomorrow Routine /postoperative advancement Postoperative instructions/precautions reviewed. Routine PP visit at 2 and 6 weeks in clinic. VS, I&O, 24H, Fishbone Vital Signs/I&O Vital Signs Date Time Temp Pulse Resp B/P (MAP) Pulse Ox O2 Delivery O2 Flow Rate FiO2 08/21/20 05:53 98.8 97 18 108/65 (79) 97 Room Air I&O- Last 24 Hours up to 6 AM 08/21/20 06:00 Intake Total 2350 ml Output Total 1480 ml Balance 870 ml Laboratory Data 24H LABS Laboratory Tests 2 08/20/20 08:57: Nucleated Red Blood Cells % (auto) 0.0 08/20/20 09:58: Bedside Glucose (Misc Panel) 90 CBC/BMP Laboratory Tests 08/20/20 08:57 SCOTTY DONG DO August 21, 2020 08:05
[2020-08-21 08:09] LABS: HEMATOCRIT 24.3 % (36.0-47.0); MEAN CORPUSCULAR HEMOGLOBIN 24.3 pg (27.0-33.0); MEAN CORPUSCULAR HGB CONC 30.5 g/dl (32.0-36.5); MEAN CORPUSCULAR VOLUME 79.9 fl (80.0-96.0); PLATELET COUNT, AUTOMATED 301 10^3/uL (150-450); RED BLOOD COUNT 3.04 10^6/uL (4.00-5.40); WHITE BLOOD COUNT 14.3 10^3/uL (4.0-10.0)
[2020-08-21 08:22] LABS: HEMOGLOBIN 7.4 g/dl (12.0-15.5)
[2020-08-21] MEDS ORDERED: PERCOCET PO (08:30)
[2020-08-21] MEDS ORDERED: DOK1CAP7 PO (08:30)
[2020-08-21] MEDS ORDERED: IBUP80TA PO (08:30)
[2020-08-21] MEDS: PRENATAL VITAMINS CHEWABLE TABLET PO SCH (09:38)
[2020-08-21] MEDS: DOCUSATE SODIUM 100MG CAPSULE PO SCH ×2 (09:38→20:40)
[2020-08-21 09:49] VITALS: BP 107/64
[2020-08-21 14:00] VITALS: BP 131/7
[2020-08-21] MEDS: SIMETHICONE 80MG CHEW TAB PO PRN (14:50)
[2020-08-21] MEDS: PERCOCET 5MG/325MG TAB PO PRN (17:21)
[2020-08-21 18:00] VITALS: BP 132/69
[2020-08-21] MEDS: metFORMIN (GLUCOPHAGE) 500MG TAB PO SCH (18:19)
[2020-08-21] MEDS: IBUPROFEN 800 MG TAB PO SCH (18:20)
[2020-08-21] MEDS: ENOXAPARIN 60MG/0.6ML SYRINGE (J1650 PER 10MG) SC SCH (21:54)
[2020-08-21 22:00] VITALS: BP 132/86
[2020-08-22] MEDS: LR 1,000 ML IV SCH (00:10)
[2020-08-22] MEDS: IBUPROFEN 800 MG TAB PO SCH ×3 (02:29→18:53)
[2020-08-22] MEDS: PERCOCET 5MG/325MG TAB PO PRN ×2 (03:07→14:31)
[2020-08-22] MEDS: SIMETHICONE 80MG CHEW TAB PO PRN ×2 (04:54→14:31)
[2020-08-22 06:00] VITALS: BP 139/90
[2020-08-22 07:33] LABS: HEMATOCRIT 23.1 % (36.0-47.0); MEAN CORPUSCULAR HEMOGLOBIN 24.5 pg (27.0-33.0); MEAN CORPUSCULAR HGB CONC 30.3 g/dl (32.0-36.5); MEAN CORPUSCULAR VOLUME 80.8 fl (80.0-96.0); PLATELET COUNT, AUTOMATED 286 10^3/uL (150-450); RED BLOOD COUNT 2.86 10^6/uL (4.00-5.40); WHITE BLOOD COUNT 11.7 10^3/uL (4.0-10.0)
[2020-08-22] MEDS: PRENATAL VITAMINS CHEWABLE TABLET PO SCH (08:31)
[2020-08-22] MEDS: DOCUSATE SODIUM 100MG CAPSULE PO SCH (08:31)
[2020-08-22] MEDS ORDERED: FERROUS GLUCONATE 324 MG TAB PO SCH (09:00)
[2020-08-22 11:04] VITALS: BP 147/93
[2020-08-22 11:10] VITALS: BP 125/84
--- NOTE | 2020-08-22 17:22 | DS.PDOC ---
Discharge Summary General Date of Admission August 20, 2020 at 07:38 Date of Discharge 08/22/20 Attending Physician: SCOTTY DONG DO Discharge Summary PROCEDURES PERFORMED DURING STAY: Primary section. ADMITTING DIAGNOSES: 1.Chronic hypertension 2. Pre-gestational diabetes; metformin 500 mg twice a day, hemoglobin A1c 5.5 on 05/23/2020 3. Anemia; ferrous sulfate 325 mg once daily 4. macrosomia; EFW greater than the 97th percentile on 08/15 4300 g. Patient declined our initial offer for a primary low transverse section. See record 5. Obesity, BMI 46.7, roughly 40 pound weight gain during the DISCHARGE DIAGNOSES: 1. Day 2 postoperative. COMPLICATIONS/CHIEF COMPLAINT: Induction. HISTORY OF PRESENT ILLNESS: Farhana is a 30-year-old female who presented to L&D for an induction of labor. After discussing risks of induction and vaginal delivery given recent growth ultrasounds and A2GDM (4300) she did elect for a primary section. Her H/H has been monitored due to it being 11/12. She has been OOB ambulating and showering without any dizziness or complaints. She continues to report no symptoms. PFS did see patient today due to her history of adoption of her last child due to multiple psychiatric issues and multiple admission into [facility]. She started to get very irritated and proceeded to act like she was having a panic attack. PFS left at that time. CPS was contacted. The patient voiced concerns that her last baby was taken away due to the last OB in 2010 that delivered her baby expressed concern that she was "unfit to be a mother." Also reported that CPS is evil and they always take kids away from parents. Reviewed with patient that she does need to cooperated with PFS and CPS as they can dictate if she is able to take her baby home. She did calm and PFS and CPS was able to see her to clear her due to having a good support system now (boyfriend and his mother). DISCHARGE MEDICATIONS: Please see below. ALLERGIES: Please see below. PHYSICAL EXAMINATION ON DISCHARGE: VITAL SIGNS: Please see below. GENERAL: No distress now. Did witness her having a "panic attack' when PFS initially interviewed her. RESPIRATORY EXAMINATION: regular rate, without use of accessory muscles. ABDOMINAL EXAMINATION: dressing intact EXTREMITIES: bilateral edema, 1+ pitting edema lower extremities. SKIN: warm, dry , intact NEUROLOGICAL EXAMINATION: alert and oriented. PSYCHIATRIC EXAMINATION: Patient calm but was really agitated when PFS was in to see her. LABORATORY DATA: Please see below. ACTIVITY: As tolerated. Pelvic rest. DIET: regular DISCHARGE INSTRUCTIONS: 1. Follow-up in 2 weeks for incision check and 6-8 weeks for routine . 2. CPS has made a plan for involvement with [employer] and instructed that she does have to be seen by psychiatrist and resume mental health care as her last appointment appears to have been in 2018. 3. Discharge instructions have been reviewed. 4. Continue taking PNV and iron as prescribed. DISCHARGE CONDITION: Stable. Vital Signs/I&Os Vital Signs Date Time Temp Pulse Resp B/P (MAP) Pulse Ox O2 Delivery O2 Flow Rate FiO2 08/22/20 14:31 20 08/22/20 11:10 117 125/84 (98) 08/22/20 06:00 98.1 08/22/20 03:37 Room Air 08/21/20 18:00 98 l I&O- Last 24 Hours up to 6 AM 08/22/20 06:00 Intake Total 400 ml Output Total 700 ml Balance -300 ml Laboratory Data Labs 24H Laboratory Tests 2 08/22/20 06:42: Nucleated Red Blood Cells % (auto) 0.0 CBC/BMP Laboratory Tests 08/22/20 06:42 Discharge Medications Scheduled Docusate Sodium (Dok) 100 Mg Capsule, 100 MG PO BID Ferrous Gluconate (Ferrous Gluconate) 324 Mg Tablet, 324 MG PO BID Ibuprofen (Ibuprofen) 800 Mg Tablet, 800 MG PO Q8H [ vit] , 1 TAB PO DAILY, (Reported) Scheduled PRN Oxycodone/Acetaminophen (Oxycodone-Acetaminophen 5-325) 1 Each Tablet, 1 TAB PO Q4H PRN for MILD/MODERATE PAIN (PS 1-7) Allergies Coded Allergies: Penicillins (Verified Allergy, Intermediate, hives, 12/09/18) amoxicillin (Verified Allergy, Intermediate, HIVES, 12/09/18) CORTNEY BANKS CNM August 22, 2020 17:22
[2020-08-22] MEDS ORDERED: FERR32TA PO (17:23)
[2020-08-22] MEDS: metFORMIN (GLUCOPHAGE) 500MG TAB PO SCH (18:00)
== END 2020-08-22 20:00 | disposition home or self-care (01) | DRG 540 ==
LOC: M LDI 07:38 → M OBS 17:47
PROVIDERS: ADMIT Advanced Practice Midwife; ATTEND Obstetrics & Gynecology
PROC: 10D00Z1 Extraction of Products of Conception, Low, Open Approach (ICD-10-PCS; principal; 2020-08-20 13:00)
DX: O36.63X0 Maternal care for excessive fetal growth, third trimester, not applicable or unspecified (principal); O24.12 Pre-existing type 2 diabetes mellitus, in childbirth; O10.02 Pre-existing essential hypertension complicating childbirth; E66.9 Obesity, unspecified; O99.214 Obesity complicating childbirth; O99.02 Anemia complicating childbirth; Z3A.37 37 weeks gestation of pregnancy; Z79.84 Long term (current) use of oral hypoglycemic drugs; O99.344 Other mental disorders complicating childbirth; F41.0 Panic disorder [episodic paroxysmal anxiety]; Z37.0 Single live birth

== ENCOUNTER 2020-08-27 11:21 | Emergency (ER) | payer OTHER ==
[~2020-08-27] VITALS: Ht 162.6 cm; Wt 113.3 kg
[2020-08-27 13:15] LABS: BASO # 0.1 10^3/uL (0.0-0.2); BASO % 0.5 % (0.0-1.0); EOS # 0.3 10^3/uL (0.0-0.5); EOS % 2.2 % (0.0-3.0); LYMPH # 2.4 10^3/uL (1.5-5.0); LYMPH % 16.6 % (24.0-44.0); MEAN CORPUSCULAR HEMOGLOBIN 24.3 pg (27.0-33.0); MEAN CORPUSCULAR HGB CONC 30.3 g/dl (32.0-36.5); MEAN CORPUSCULAR VOLUME 80.1 fl (80.0-96.0); MONO # 0.7 10^3/uL (0.0-0.8); NEUTROPHILS # 10.9 10^3/uL (1.5-8.5); NEUTROPHILS % 74.9 % (36.0-66.0); PLATELET COUNT, AUTOMATED 528 10^3/uL (150-450); RED BLOOD COUNT 4.12 10^6/uL (4.00-5.40); WHITE BLOOD COUNT 14.5 10^3/uL (4.0-10.0)
--- NOTE | 2020-08-27 14:04 | REP ---
INDICATION: urinary retention. COMPARISON: None. FINDINGS: Multiple ultrasonographic images of the right kidney show the right kidney to measure 12.6 x 6.4 x 4.9 cm. The renal cortical echotexture is unremarkable. There are no masses. There is good corticomedullary differentiation. There is no hydronephrosis. There are no perinephric fluid collections. Multiple ultrasonographic images of the left kidney show the left kidney to measure 11.1 x 4.5 x 6.1 cm. The renal cortical echotexture is unremarkable. In the upper pole there is an 8 mm sized echogenic focus likely residing within a calyx. There are no masses. There is good corticomedullary differentiation. There is no hydronephrosis. There are no perinephric fluid collections. IMPRESSION: Likely small nonobstructing left nephrolith as described above. <Electronically signed by Chauncey Rivera > 08/27/20 1400
[2020-08-27 14:46] VITALS: BP 135/93
== END 2020-08-27 14:47 | disposition home or self-care (01) ==
LOC: M ED 11:21
DX: R10.9 Unspecified abdominal pain (principal); R33.9 Retention of urine, unspecified; I10 Essential (primary) hypertension; R56.9 Unspecified convulsions; J45.909 Unspecified asthma, uncomplicated; F41.9 Anxiety disorder, unspecified; Z88.0 Allergy status to penicillin; Z88.1 Allergy status to other antibiotic agents

== ENCOUNTER → 2020-08-27 | Outpatient (REF) | payer OTHER ==
[~2020-08-27] MED LIST changes: +DOK1CAP7 PO; +FERR32TA PO; +IBUP80TA PO; +METF500T13 PO; +PERCOCET PO
== END ==
LOC: M LAB REF 10:36
PROVIDERS: ATTEND Physician Assistant
DX: R30.0 Dysuria (principal)

== ENCOUNTER 2021-04-07 10:20 | Emergency (ER) | payer OTHER ==
[~2021-04-07] VITALS: Ht 165.1 cm; Wt 116.4 kg
[~2021-04-07 10:20] MED LIST changes: +DOK1CAP4 PO; -DOK1CAP7 PO
[2021-04-07] MEDS ORDERED: CEFD300C PO (12:19)
[2021-04-07 12:29] VITALS: BP 123/72
== END 2021-04-07 12:41 | disposition home or self-care (01) ==
LOC: M ED 10:20
DX: J02.9 Acute pharyngitis, unspecified (principal); H66.92 Otitis media, unspecified, left ear; Z88.0 Allergy status to penicillin; Z88.1 Allergy status to other antibiotic agents

== ENCOUNTER 2022-01-16 14:19 | Emergency (ER) | payer OTHER ==
[~2022-01-16] VITALS: Ht 162.6 cm; Wt 119.1 kg
[~2022-01-16 14:19] MED LIST changes: +CEFD300C PO
[2022-01-16 14:20] VITALS: BP 139/90
[2022-01-16 16:23] LABS: BASO # 0.1 10^3/uL (0.0-0.2); BASO % 0.4 % (0.0-1.0); EOS # 0.4 10^3/uL (0.0-0.5); EOS % 2.5 % (0.0-3.0); HEMATOCRIT 37.8 % (36.0-47.0); HEMOGLOBIN 11.4 g/dl (12.0-15.5); LYMPH # 2.9 10^3/uL (1.5-5.0); LYMPH % 17.9 % (24.0-44.0); MEAN CORPUSCULAR HEMOGLOBIN 23.2 pg (27.0-33.0); MEAN CORPUSCULAR HGB CONC 30.2 g/dl (32.0-36.5); MEAN CORPUSCULAR VOLUME 76.8 fl (80.0-96.0); MONO # 0.8 10^3/uL (0.0-0.8); MONO % 4.9 % (2.0-8.0); NEUTROPHILS # 11.8 10^3/uL (1.5-8.5); PLATELET COUNT, AUTOMATED 455 10^3/uL (150-450); RED BLOOD COUNT 4.92 10^6/uL (4.00-5.40)
[2022-01-16 16:41] LABS: HCG, SERUM QUALITATIVE NEGATIVE (NEGATIVE)
[2022-01-16 16:52] LABS: CK-MB VALUE MASS < 1.0 NG/ML (<3.6); CPK CREATINE PHOSPHOKINASE 45 U/L (26-192); MB/CK RELATIVE INDEX 2.22 (< OR =4)
[2022-01-16 16:56] LABS: ALBUMIN 3.6 GM/DL (3.2-5.2); ALT/SGPT 25 U/L (12-78); BILIRUBIN,DIRECT < 0.1 MG/DL (0.0-0.2); BILIRUBIN,TOTAL 0.2 MG/DL (0.2-1.0); BLOOD UREA NITROGEN 14 MG/DL (7-18); CALCIUM LEVEL 9.2 MG/DL (8.5-10.1); CARBON DIOXIDE LEVEL 28 MEQ/L (21-32); CHLORIDE LEVEL 102 MEQ/L (98-107); CREATININE FOR GFR 0.73 MG/DL (0.55-1.30); GLOMERULAR FILTRATION RATE > 60.0 (>60); GLUCOSE, FASTING 91 MG/DL (70-100); POTASSIUM SERUM 4.6 MEQ/L (3.5-5.1); SODIUM LEVEL 136 MEQ/L (136-145); THYROXINE (T4) 7.4 UG/DL (4.5-12.0); TOTAL PROTEIN 7.6 GM/DL (6.4-8.2)
== END 2022-01-16 17:11 | disposition left against medical advice (07) ==
LOC: M ED 14:19
DX: Z53.21 Procedure and treatment not carried out due to patient leaving prior to being seen by health care provider (principal)

== ENCOUNTER 2022-03-02 00:24 | Emergency (ER) | payer OTHER ==
[~2022-03-02] VITALS: Ht 162.6 cm; Wt 114.0 kg
[2022-03-02 00:27] VITALS: BP 135/85
== END 2022-03-02 01:30 | disposition left against medical advice (07) ==
LOC: M ED 00:24
DX: Z53.21 Procedure and treatment not carried out due to patient leaving prior to being seen by health care provider (principal)

== ENCOUNTER → 2022-05-09 | Outpatient (CLI) | payer OTHER ==
[2022-05-09 13:19] LABS: FREE T4 1.06 NG/DL (0.89-1.76); HEMOGLOBIN A1c 5.3 % (4.0-6.0); THYROID STIMULATING HORMONE 0.28 uIU/ML (0.55-4.78)
[2022-05-09 13:20] LABS: PROLACTIN 5.44 NG/ML
== END ==
LOC: M RAD 11:36
PROVIDERS: ATTEND Nurse Practitioner Family
DX: N83.01 Follicular cyst of right ovary (principal); R10.2 Pelvic and perineal pain

== ENCOUNTER → 2022-05-09 | Outpatient (REF) | payer OTHER | LOC: M PLALAB 10:55 | PROVIDERS: ATTEND Nurse Practitioner Family | DX: N92.1 Excessive and frequent menstruation with irregular cycle (principal); R10.2 Pelvic and perineal pain ==

== ENCOUNTER → 2022-06-12 | Outpatient (REF) | payer OTHER | LOC: M SFHCWAGY 15:55 | PROVIDERS: ATTEND Nurse Practitioner Family | DX: Z12.4 Encounter for screening for malignant neoplasm of cervix (principal) ==

== ENCOUNTER 2022-08-29 18:51 | Emergency (ER) | payer OTHER ==
[~2022-08-29] VITALS: Ht 162.6 cm; Wt 104.2 kg
[2022-08-29 18:53] VITALS: BP 126/82
[2022-08-30] MEDS ORDERED: ALBUTEROL 90 MCG/ACT 8GM HFA INHALER INH ONE (00:40)
[2022-08-30] MEDS ORDERED: VENTAER INH (00:43)
== END 2022-08-30 00:57 | disposition home or self-care (01) ==
LOC: M ED 18:51
DX: J06.9 Acute upper respiratory infection, unspecified (principal); J45.909 Unspecified asthma, uncomplicated; E11.9 Type 2 diabetes mellitus without complications; I10 Essential (primary) hypertension; N93.9 Abnormal uterine and vaginal bleeding, unspecified; F41.9 Anxiety disorder, unspecified; F17.200 Nicotine dependence, unspecified, uncomplicated; Z88.0 Allergy status to penicillin; Z79.51 Long term (current) use of inhaled steroids

== ENCOUNTER → 2022-10-08 | Outpatient (CLI) | payer OTHER | LOC: M WUC 10:31 | PROVIDERS: ATTEND Student in an Organized Health Care Education/Training Program | DX: M25.561 Pain in right knee (principal) ==

== ENCOUNTER → 2023-09-23 | Outpatient (CLI) | payer OTHER ==
[~2023-09-23] MED LIST changes: +ISOVUE-370 76% 100ML VIAL As Ordered ONE
== END ==
LOC: M RAD 10:02
PROVIDERS: ATTEND Physician Assistant Medical
DX: H66.002 Acute suppurative otitis media without spontaneous rupture of ear drum, left ear (principal); M87.9 Osteonecrosis, unspecified

== ENCOUNTER → 2023-09-27 | Outpatient (CLI) | payer OTHER ==
[~2023-09-27] MED LIST changes: -ISOVUE-370 76% 100ML VIAL As Ordered ONE
== END ==
LOC: M WHC 11:15
PROVIDERS: ATTEND Nurse Practitioner Family
DX: Z53.9 Procedure and treatment not carried out, unspecified reason (principal)

== ENCOUNTER → 2023-10-14 | Outpatient (CLI) | payer OTHER ==
[2023-10-14 15:32] LABS: BASO # 0.1 10^3/uL (0.0-0.2); BASO % 0.6 % (0.0-1.0); EOS # 0.2 10^3/uL (0.0-0.5); EOS % 1.7 % (0.0-3.0); HEMATOCRIT 39.1 % (36.0-47.0); HEMOGLOBIN 12.1 g/dl (12.0-15.5); LYMPH # 2.8 10^3/uL (1.5-5.0); LYMPH % 22.5 % (24.0-44.0); MEAN CORPUSCULAR HEMOGLOBIN 26.7 pg (27.0-33.0); MEAN CORPUSCULAR HGB CONC 30.9 g/dl (32.0-36.5); MEAN CORPUSCULAR VOLUME 86.1 fl (80.0-96.0); MONO # 0.6 10^3/uL (0.0-0.8); NEUTROPHILS # 8.5 10^3/uL (1.5-8.5); NEUTROPHILS % 69.9 % (36.0-66.0); PLATELET COUNT, AUTOMATED 310 10^3/uL (150-450); RED BLOOD COUNT 4.54 10^6/uL (4.00-5.40); WHITE BLOOD COUNT 12.2 10^3/uL (4.0-10.0)
[2023-10-14 15:55] LABS: HEMOGLOBIN A1c 5.4 % (4.0-6.0)
[2023-10-14 16:02] LABS: ALBUMIN 3.5 G/DL (3.2-5.2); ALKALINE PHOSPHATASE 73 U/L (46-116); ALT/SGPT 19 U/L (7.0-40); AST/SGOT < 8 U/L (<34); BILIRUBIN,TOTAL 0.5 MG/DL (0.3-1.2); BLOOD UREA NITROGEN 10 MG/DL (9-23); CARBON DIOXIDE LEVEL 28 MMOL/L (20-31); CHLORIDE LEVEL 106 MMOL/L (98-107); CHOLESTEROL LEVEL 192 MG/DL (<200); CHOLESTEROL RISK RATIO 3.09 (<5); GLOMERULAR FILTRATION RATE > 60.0 (>60); GLUCOSE, FASTING 83 MG/DL (60-100); LDL CHOLESTEROL 104.6 MG/DL (<100); POTASSIUM SERUM 4.4 MMOL/L (3.5-5.1); SODIUM LEVEL 140 MMOL/L (136-145); TRIGLYCERIDES LEVEL 127 MG/DL (<150)
== END ==
LOC: M PLALAB 12:04
PROVIDERS: ATTEND Nurse Practitioner Family
DX: E78.5 Hyperlipidemia, unspecified (principal); E55.9 Vitamin D deficiency, unspecified; R73.03 Prediabetes; K61.0 Anal abscess

== ENCOUNTER 2023-11-15 07:46 | Day surgery (SDC) | payer OTHER ==
[~2023-11-15] VITALS: Ht 162.6 cm; Wt 92.1 kg
[~2023-11-15 07:46] MED LIST changes: +ESTA0.25 PO; +PHEN-501 PO
[2023-11-15] MEDS ORDERED: LR 1,000 ML IV SCH ×2 (07:55→13:10)
[2023-11-15 08:21] LABS: HEMATOCRIT 39.3 % (36.0-47.0); HEMOGLOBIN 12.7 g/dl (12.0-15.5); MEAN CORPUSCULAR HEMOGLOBIN 27.4 pg (27.0-33.0); MEAN CORPUSCULAR HGB CONC 32.3 g/dl (32.0-36.5); MEAN CORPUSCULAR VOLUME 84.9 fl (80.0-96.0); PLATELET COUNT, AUTOMATED 328 10^3/uL (150-450); RED BLOOD COUNT 4.63 10^6/uL (4.00-5.40); WHITE BLOOD COUNT 10.2 10^3/uL (4.0-10.0)
[2023-11-15] MEDS ORDERED: MIDAZOLAM INJ 2MG/2ML VIAL As Ordered ONE (08:28)
[2023-11-15] MEDS ORDERED: propofoL 200 MG/20 ML VIAL As Ordered ONE (08:29)
[2023-11-15] MEDS ORDERED: ROCURONIUM BROMIDE 50MG/5ML VIAL As Ordered ONE (08:29)
[2023-11-15] MEDS ORDERED: LIDOCAINE 2% 100MG/5ML SDV (FOR ANES.) As Ordered ONE (08:29)
[2023-11-15] MEDS ORDERED: fentaNYL 100 MCG/2 ML INJECTION As Ordered ONE (08:29)
[2023-11-15 08:58] LABS: HCG, SERUM QUALITATIVE NEGATIVE (NEGATIVE)
[2023-11-15] MEDS ORDERED: ACETAMINOPHEN 1000MG 100ML IV BAG As Ordered ONE (11:34)
[2023-11-15] MEDS ORDERED: ONDANSETRON 4MG 2ML VIAL As Ordered ONE (11:42)
[2023-11-15] MEDS ORDERED: SUGAMMADEX SODIUM 500 MG/5 ML VIAL (BRIDION) As Ordered ONE (11:42)
[2023-11-15] MEDS: ceFAZolin SOD 2 GM in IV 1 EA IV ONE (11:55)
[2023-11-15] MEDS: METHYLENE BLUE 0.5% (5MG/ML) 10 ML AMP (PROVAYBLUE) As Ordered ONE (12:27)
[2023-11-15] MEDS ORDERED: HYDROmorphone HCL 2MG/ML 1ML VIAL As Ordered ONE (12:51)
[2023-11-15] MEDS ORDERED: HYDROMORPHONE HCL 0.5 MG/ 0.5 ML SYRINGE IV PRN (13:10)
[2023-11-15] MEDS ORDERED: oxyCODONE 5MG TAB PO PRN (13:10)
[2023-11-15] MEDS ORDERED: ONDANSETRON 4MG 2ML VIAL IV PRN (13:10)
[2023-11-15] MEDS: fentaNYL 100 MCG/2 ML INJECTION IV PRN (13:40)
[2023-11-15] MEDS ORDERED: PERCOCET 5MG/325MG TAB PO PRN (14:05)
[2023-11-15] MEDS: KETOROLAC 30 MG/ML 1ML VIAL IV SCH (14:12)
[2023-11-15 15:20] VITALS: BP 117/58; TEMP 97.4; O2SAT 99
== END 2023-11-15 15:23 | disposition home or self-care (01) ==
LOC: M SDC 07:46
PROVIDERS: ATTEND Obstetrics & Gynecology
DX: N85.8 Other specified noninflammatory disorders of uterus (principal); N93.9 Abnormal uterine and vaginal bleeding, unspecified; N94.6 Dysmenorrhea, unspecified; J45.909 Unspecified asthma, uncomplicated; Z87.891 Personal history of nicotine dependence; Z79.899 Other long term (current) drug therapy; Z79.3 Long term (current) use of hormonal contraceptives
CPT/HCPCS: 36415; 58571; 84703; 85027; 86850; 86900; 86901; 88307; J0131; J0665; J0690; J1100; J1170; J1885; J2250; J2405; J3010; S2900

== ENCOUNTER 2023-11-24 18:29 | Emergency (ER) | payer OTHER ==
[2023-11-24 19:45] LABS: BASO # 0.1 10^3/uL (0.0-0.2); BASO % 0.6 % (0.0-1.0); EOS # 0.3 10^3/uL (0.0-0.5); EOS % 2.4 % (0.0-3.0); HEMATOCRIT 38.6 % (36.0-47.0); HEMOGLOBIN 12.4 g/dl (12.0-15.5); LYMPH # 3.5 10^3/uL (1.5-5.0); LYMPH % 26.4 % (24.0-44.0); MEAN CORPUSCULAR HEMOGLOBIN 27.3 pg (27.0-33.0); MEAN CORPUSCULAR HGB CONC 32.1 g/dl (32.0-36.5); MEAN CORPUSCULAR VOLUME 84.8 fl (80.0-96.0); MONO # 0.9 10^3/uL (0.0-0.8); MONO % 6.5 % (2.0-8.0); NEUTROPHILS # 8.5 10^3/uL (1.5-8.5); NEUTROPHILS % 63.8 % (36.0-66.0); PLATELET COUNT, AUTOMATED 395 10^3/uL (150-450); RED BLOOD COUNT 4.55 10^6/uL (4.00-5.40); WHITE BLOOD COUNT 13.3 10^3/uL (4.0-10.0)
[2023-11-24 19:57] LABS: BLOOD UREA NITROGEN 9 MG/DL (9-23); CALCIUM LEVEL 9.4 MG/DL (8.5-10.1); CARBON DIOXIDE LEVEL 30 MMOL/L (20-31); CHLORIDE LEVEL 107 MMOL/L (98-107); CREATININE FOR GFR 0.61 MG/DL (0.55-1.30); GLOMERULAR FILTRATION RATE > 60.0 (>60); GLUCOSE, FASTING 94 MG/DL (60-100); POTASSIUM SERUM 4.3 MMOL/L (3.5-5.1); SODIUM LEVEL 141 MMOL/L (136-145)
[2023-11-24] MEDS ORDERED: ISOVUE-370 76% 100ML VIAL As Ordered ONE (19:59)
[2023-11-24 21:42] VITALS: BP 141/97; TEMP 97.8; O2SAT 100
== END 2023-11-24 21:50 | disposition home or self-care (01) ==
LOC: EDBD 18:29 → M ED 18:29
DX: R10.2 Pelvic and perineal pain (principal); N99.820 Postprocedural hemorrhage of a genitourinary system organ or structure following a genitourinary system procedure; E11.9 Type 2 diabetes mellitus without complications; I10 Essential (primary) hypertension; Z87.891 Personal history of nicotine dependence; Z88.0 Allergy status to penicillin; Z88.1 Allergy status to other antibiotic agents
CPT/HCPCS: 36415; 74177; 80048; 81001; 85025; 86850; 86900; 86901; 99284; Q9967

== ENCOUNTER → 2024-07-03 | Outpatient (CLI) | payer OTHER ==
[2024-07-03 17:04] LABS: BASO # 0.1 10^3/uL (0.0-0.2); BASO % 0.6 % (0.0-1.0); EOS # 0.3 10^3/uL (0.0-0.5); EOS % 2.1 % (0.0-3.0); HEMATOCRIT 39.8 % (36.0-47.0); HEMOGLOBIN 12.5 g/dl (12.0-15.5); LYMPH # 2.8 10^3/uL (1.5-5.0); LYMPH % 19.2 % (24.0-44.0); MEAN CORPUSCULAR HEMOGLOBIN 26.8 pg (27.0-33.0); MEAN CORPUSCULAR HGB CONC 31.4 g/dl (32.0-36.5); MEAN CORPUSCULAR VOLUME 85.2 fl (80.0-96.0); MONO # 0.9 10^3/uL (0.0-0.8); MONO % 5.8 % (2.0-8.0); NEUTROPHILS # 10.6 10^3/uL (1.5-8.5); PLATELET COUNT, AUTOMATED 381 10^3/uL (150-450); RED BLOOD COUNT 4.67 10^6/uL (4.00-5.40); WHITE BLOOD COUNT 14.8 10^3/uL (4.0-10.0)
[2024-07-03 17:32] LABS: ALBUMIN 3.7 G/DL (3.2-5.2); ALKALINE PHOSPHATASE 88 U/L (35-104); ALT/SGPT 21 U/L (7.0-40); AST/SGOT 14 U/L (<34); BILIRUBIN,TOTAL 0.2 MG/DL (0.3-1.2); BLOOD UREA NITROGEN 13 MG/DL (9-23); CALCIUM LEVEL 9.3 MG/DL (8.5-10.1); CARBON DIOXIDE LEVEL 31 MMOL/L (20-31); CHLORIDE LEVEL 105 MMOL/L (98-107); CHOLESTEROL LEVEL 167 MG/DL (<200); CHOLESTEROL RISK RATIO 2.68 (<5); CREATININE FOR GFR 0.67 MG/DL (0.55-1.30); GLOMERULAR FILTRATION RATE > 60.0 (>60); GLUCOSE, FASTING 91 MG/DL (60-100); HDL CHOLESTEROL 62.2 MG/DL (>40); LDL CHOLESTEROL 82.2 MG/DL (<100); NON-HDL-C 104.8 MG/DL; POTASSIUM SERUM 4.5 MMOL/L (3.5-5.1); SODIUM LEVEL 141 MMOL/L (136-145); TOTAL PROTEIN 7.4 G/DL (5.7-8.2); TRIGLYCERIDES LEVEL 113 MG/DL (<150)
[2024-07-03 17:34] LABS: THYROID STIMULATING HORMONE 0.521 uIU/ML (0.55-4.78)
[2024-07-03 17:35] LABS: FREE T4 1.05 NG/DL (0.89-1.76)
== END ==
LOC: M PLALAB 16:01
PROVIDERS: ATTEND Nurse Practitioner Family
DX: E78.5 Hyperlipidemia, unspecified (principal); E55.9 Vitamin D deficiency, unspecified; R06.02 Shortness of breath; R73.03 Prediabetes; R53.83 Other fatigue; R05.3 Chronic cough

== ENCOUNTER 2024-07-18 18:45 | Emergency (ER) | payer OTHER ==
[~2024-07-18] VITALS: Ht 162.6 cm; Wt 112.6 kg
[2024-07-18 19:43] LABS: VENOUS BASE EXCESS 0.5 (-2.0-2.0); VENOUS HCO3 25.6 MMOL/L (23.0-27.0); VENOUS O2 SATURATION 74.8 % (60.0-80.0); VENOUS PARTIAL PRESSURE CO2 43.2 mmHg (38.0-50.0); VENOUS PARTIAL PRESSURE O2 41.1 mmHg (30.0-50.0); VENOUS PH 7.391 UNITS (7.330-7.430); VENOUS STANDARD HCO3 24.4 MMOL/L; VENOUS TOTAL CO2 26.9 MMOL/L (24.0-28.0)
[2024-07-18 19:47] LABS: BASO # 0.1 10^3/uL (0.0-0.2); BASO % 0.4 % (0.0-1.0); EOS # 0.2 10^3/uL (0.0-0.5); EOS % 2.2 % (0.0-3.0); HEMATOCRIT 39.6 % (36.0-47.0); HEMOGLOBIN 12.7 g/dl (12.0-15.5); LYMPH # 2.2 10^3/uL (1.5-5.0); LYMPH % 19.5 % (24.0-44.0); MEAN CORPUSCULAR HEMOGLOBIN 26.4 pg (27.0-33.0); MEAN CORPUSCULAR HGB CONC 32.1 g/dl (32.0-36.5); MEAN CORPUSCULAR VOLUME 82.3 fl (80.0-96.0); MONO # 0.6 10^3/uL (0.0-0.8); MONO % 5.7 % (2.0-8.0); NEUTROPHILS % 71.9 % (36.0-66.0); PLATELET COUNT, AUTOMATED 295 10^3/uL (150-450); RED BLOOD COUNT 4.81 10^6/uL (4.00-5.40); WHITE BLOOD COUNT 11.2 10^3/uL (4.0-10.0)
[2024-07-18 20:12] LABS: ALBUMIN 3.6 G/DL (3.2-5.2); ALKALINE PHOSPHATASE 78 U/L (35-104); ALT/SGPT 27 U/L (7.0-40); AST/SGOT 15 U/L (<34); BILIRUBIN,DIRECT < 0.1 MG/DL (<0.4); BILIRUBIN,TOTAL 0.2 MG/DL (0.3-1.2); BLOOD UREA NITROGEN 12 MG/DL (9-23); CARBON DIOXIDE LEVEL 26 MMOL/L (20-31); CHLORIDE LEVEL 103 MMOL/L (98-107); CK-MB VALUE MASS < 1.0 NG/ML (<3.6); CREATININE FOR GFR 0.57 MG/DL (0.55-1.30); GLOMERULAR FILTRATION RATE > 60.0 (>60); GLUCOSE, FASTING 105 MG/DL (60-100); POTASSIUM SERUM 3.6 MMOL/L (3.5-5.1); SODIUM LEVEL 139 MMOL/L (136-145); TOTAL PROTEIN 7.3 G/DL (5.7-8.2)
[2024-07-18 20:14] LABS: THYROXINE (T4) 7.5 UG/DL (4.5-10.9)
[2024-07-18 20:15] LABS: THYROID STIMULATING HORMONE 1.561 uIU/ML (0.55-4.78)
[2024-07-18 20:22] LABS: CPK CREATINE PHOSPHOKINASE 54 U/L (34-145); MB/CK RELATIVE INDEX 1.85 (< OR =4)
[2024-07-18] MEDS ORDERED: ALBU0.63 NEB (20:56)
[2024-07-18] MEDS: NS (Normal Saline) 0.9% 1,000 ML IV SCH (20:57)
[2024-07-18] MEDS: ACETAMINOPHEN *IV* 1,000 MG in IV 1 EA IV ONE (21:00)
[2024-07-18] MEDS: IPRATROPIUM 0.5MG/ALBUTEROL 2.5MG INH SOL UD 3ML (DUONEB) NEB ONE (21:03)
[2024-07-18] MEDS ORDERED: NEBU1EAC74 MC (21:08)
[2024-07-18 21:29] VITALS: BP 113/68; TEMP 99; O2SAT 99
== END 2024-07-18 21:37 | disposition home or self-care (01) ==
LOC: M ED 18:45
DX: J09.X2 Influenza due to identified novel influenza A virus with other respiratory manifestations (principal); R06.02 Shortness of breath; R05.9 Cough, unspecified; R00.0 Tachycardia, unspecified; J45.909 Unspecified asthma, uncomplicated; Z88.0 Allergy status to penicillin; Z88.1 Allergy status to other antibiotic agents; Z79.51 Long term (current) use of inhaled steroids
CPT/HCPCS: 71045; 80048; 80076; 82550; 82553; 82803; 83605; 83880; 84436; 84443; 84484; 85025; 87040; 87486; 87581; 87633; 87798; 93005; 93041; 94640; 94760; 96365; 99284; J0131

== ENCOUNTER → 2024-12-02 | Outpatient (REF) | payer OTHER, MEDICAID ==
[~2024-12-02] MED LIST changes: +ABIL1TAB13 PO; +ACET32TAB PO; +ALBU0.63 NEB; +CLONI1TA PO; +DULO1CAP4 PO; +HYDR-3363 PO; +HYDR-3364 PO; +NEBU1EAC74 MC; +QUET50TA4 PO; +SERT50TA29 PO
[2024-12-02 18:59] LABS: Trichomonas vaginalis (AMP) NOT DETECTED (NEGATIVE)
[2024-12-02 19:23] LABS: GC DNA AMPLIFICATION NEGATIVE (NEGATIVE)
== END ==
LOC: M LAB REF 17:21
PROVIDERS: ATTEND Student in an Organized Health Care Education/Training Program
DX: R30.0 Dysuria (principal)

== ENCOUNTER 2025-02-08 11:02 | Inpatient (IN) | payer OTHER ==
[2025-02-08 12:06] LABS: PLATELET COUNT, AUTOMATED 371 10^3/uL (150-450)
[2025-02-08 12:24] LABS: ETHYL ALCOHOL (ETHANOL) < 0.003 % (0.000-0.010)
[2025-02-08 12:26] LABS: ALT/SGPT 22 U/L (7.0-40); AST/SGOT 23 U/L (<34); CALCIUM LEVEL 9.5 MG/DL (8.5-10.1); CARBON DIOXIDE LEVEL 24 MMOL/L (20-31); CHLORIDE LEVEL 108 MMOL/L (98-107); CREATININE FOR GFR 0.76 MG/DL (0.55-1.30); GLOMERULAR FILTRATION RATE > 90.0 (>60); POTASSIUM SERUM 3.6 MMOL/L (3.5-5.1); SALICYLATE LEVEL < 3.0 MG/DL (<30); SODIUM LEVEL 145 MMOL/L (136-145)
[2025-02-08 13:23] LABS: AMPHETAMINES LEVEL URINE NEGATIVE (NEGATIVE); BARBITURATES URINE NEGATIVE (NEGATIVE); BENZODIAZEPINES URINE NEGATIVE (NEGATIVE); COCAINE METABOLITE URINE NEGATIVE (NEGATIVE)
[2025-02-08 13:24] LABS: CANNABINOIDS URINE NEGATIVE (NEGATIVE); METHADONE URINE NEGATIVE (NEGATIVE); OPIATES URINE NEGATIVE (NEGATIVE); PHENCYCLIDINE URINE NEGATIVE (NEGATIVE)
[2025-02-08 13:52] LABS: KETONE, URINE AUTO RFX 1+ mg/dL (NEGATIVE); MUCUS, URINE RFX SMALL (NEGATIVE); RBC, URINE AUTO RFX 7 /HPF (0-3); SQUAM EPITHELIAL CELL UR AURFX 3 /HPF (0-6)
[2025-02-08 14:13] LABS: LEUKOCYTE ESTERASE UR AUTO RFX 3+ (NEGATIVE); NITRITE, URINE AUTO RFX POSITIVE (NEGATIVE); WBC, URINE AUTO RFX TNTC /HPF (0-3)
[2025-02-08] MEDS: BACTRIM 160MG/800MG DS TAB PO ONE (15:44)
[2025-02-08] MEDS ORDERED: MAALOX 30 ML SUSP *UDC PO PRN (16:40)
[2025-02-08] MEDS ORDERED: MOM 30 ML SUSPENSION UDC PO PRN (16:40)
[2025-02-08] MEDS ORDERED: traZODone 50 MG TAB PO PRN (16:40)
[2025-02-08] MEDS ORDERED: HOME MED LIST COMPLETE! XX SCH (17:45)
[2025-02-08 20:25] VITALS: BP 121/78; TEMP 98.3; O2SAT 98
[2025-02-10 06:23] VITALS: BP 111/69; TEMP 97.6; O2SAT 98
[2025-02-10] MEDS: IBUPROFEN 400 MG TAB PO PRN (13:54)
[2025-02-10 16:01] VITALS: BP 115/68; TEMP 98.6; O2SAT 99
[2025-02-10] MEDS: traZODone 50 MG TAB PO SCH (20:28)
[2025-02-11 06:31] VITALS: BP_SYST 129; BP_SYST 99; BP_DIAS 58; BP_DIAS 72; TEMP 98.8; O2SAT 96
[2025-02-11 14:58] VITALS: BP 138/92; TEMP 97.2; O2SAT 96
[2025-02-12 06:36] VITALS: BP 124/85; TEMP 99.1; O2SAT 96
[2025-02-12 07:40] LABS: BASO # 0.1 10^3/uL (0.0-0.2); BASO % 0.5 % (0.0-1.0); EOS # 0.3 10^3/uL (0.0-0.5); EOS % 2.3 % (0.0-3.0); LYMPH # 2.2 10^3/uL (1.5-5.0); LYMPH % 16.3 % (24.0-44.0); MONO # 0.7 10^3/uL (0.0-0.8); MONO % 5.1 % (2.0-8.0); NEUTROPHILS # 10.3 10^3/uL (1.5-8.5); NEUTROPHILS % 75.4 % (36.0-66.0); PLATELET COUNT, AUTOMATED 379 10^3/uL (150-450)
[2025-02-12] MEDS: ACETAMINOPHEN 325 MG TAB PO PRN (14:46)
[2025-02-12 15:41] VITALS: BP 123/73; TEMP 98.1; O2SAT 97
[2025-02-12] MEDS: IBUPROFEN 400 MG TAB PO SCH (15:56)
[2025-02-12] MEDS: traZODone 50 MG TAB PO PRN (20:34)
[2025-02-13 06:30] VITALS: BP 145/80; TEMP 98.4; O2SAT 98
[2025-02-13 15:18] VITALS: BP 128/80; TEMP 98.3; O2SAT 98
[2025-02-14 06:26] VITALS: BP 152/82; TEMP 98.1; O2SAT 98
[2025-02-14 14:54] VITALS: BP 133/93; TEMP 98.1; O2SAT 95
[2025-02-15 06:51] VITALS: BP 138/98; TEMP 97.6; O2SAT 98
[2025-02-15 15:44] VITALS: BP 121/77; TEMP 97.6; O2SAT 97
[2025-02-16 06:48] VITALS: BP 148/93; TEMP 97.7; O2SAT 100
[2025-02-16] MEDS ORDERED: DULO1CAP4 PO (12:21)
[2025-02-16] MEDS ORDERED: HYDR50TA70 PO (12:21)
[2025-02-16] MEDS ORDERED: ABIL10TA9 PO (12:21)
[2025-02-16] MEDS ORDERED: TRAZ-252 PO (12:21)
[2025-02-16 15:22] VITALS: BP 126/85; TEMP 97.9; O2SAT 99
[2025-02-17 06:51] VITALS: BP 134/84; TEMP 97.6; O2SAT 98
== END 2025-02-17 10:48 | disposition home or self-care (01) | DRG 751 ==
LOC: M ED 11:02 → M ED INP 16:37 → M PSY 19:47
PROVIDERS: ADMIT General Practice; ATTEND General Practice
DX: F33.2 Major depressive disorder, recurrent severe without psychotic features (principal); F41.0 Panic disorder [episodic paroxysmal anxiety]; F41.1 Generalized anxiety disorder; F43.10 Post-traumatic stress disorder, unspecified; F17.200 Nicotine dependence, unspecified, uncomplicated; Z87.820 Personal history of traumatic brain injury; Z91.51 Personal history of suicidal behavior; Z59.00 Homelessness unspecified; Z56.0 Unemployment, unspecified; Z88.0 Allergy status to penicillin

== ENCOUNTER → 2025-02-28 | Outpatient (REF) | payer OTHER, MEDICAID ==
[~2025-02-28] MED LIST changes: +ABIL10TA9 PO; +MUCI600T31 PO; +TRAZ-252 PO
== END ==
LOC: M LAB REF 12:11
PROVIDERS: ATTEND Registered Nurse
DX: R30.0 Dysuria (principal)